=== PATIENT | male | born 1945 | race Hispanic/Latino ===

== ENCOUNTER 2019-02-01 16:59 | Inpatient (IN) | payer MEDICARE, OTHER ==
[~2019-02-01] VITALS: Ht 185.4 cm; Wt 105.2 kg
[~2019-02-01 16:59] MED LIST: AMLODIPINE BESYL5 MG PO; ASPIR 8181 MG PO; BENAZEPRIL HCL10 MG PO; CRESTOR10 MG PO; FISH OIL 1,2001 EACH PO; HYDROCHLOROTHIA25 MG PO; LEVOTHYROXINE100 MCG PO
--- OUTSIDE RECORDS SUMMARY | 2019-02-01 17:02 | XMS REPORT | Continuity of Care Document ---
Author Author [facility] Interface Address Unknown Phone Unavailable Problems Problem Status Onset Date Classification Date Reported Comments Source SHORTNESS OF BREATH Active 06/11/2016 [facility] SEPSIS SECONDARY TO RIGHT SIDED PNEUMONI Active 06/11/2016 [facility] Hyperlipidemia Active Problem 07/02/2016 [facility] Hypertension Active Problem 07/02/2016 [facility] Hyperthyroidism Active Problem 07/02/2016 [facility] Sepsis Active Diagnosis 07/10/2016 [id number] Empyema of lung Active Problem 07/10/2016 [id number] Sepsis due to Hemophilus influenzae Active Problem 07/10/2016 [id number] PNA Active Problem 07/10/2016 [id number] SEPSIS, UNSPECIFIED ORGANISM Active [facility] PNEUMONIA, UNSPECIFIED ORGANISM Active [facility] PLEURAL EFFUSION IN OTHER CONDITIONS CLA Active [facility] XRAY Active [facility] PYOTHORAX WITHOUT FISTULA Active [facility] Medications Medication Details Route Status Patient Instructions Ordering Provider Order Date Source amLODIPine 5 mg oral tablet 5 mg=1 tab, PO, Daily, # 30 tab, 0 Refill(s) Active 06/18/2016 [facility] Levofloxacin 750 MG Oral Tablet [Levaquin] 750 mg=1 tab, PO, Q24H, X 10 day, # 10 tab, 0 Refill(s) Active 06/18/2016 [facility] acetaminophen-hydrocodone 325 mg-10 mg oral tablet 1 tab, Route: PO, Drug Form: TAB, Dosing Weight 104.818, kg, Q6H, PRN Pain Score 6-10, Start date: 06/17/16 13:08:00 CDT, Duration: 30 day, Stop date: 07/17/16 13:07:00 CDTNotes: Do not exceed 4gm/day of acetaminophen. (Same as: [place] 325/10) No Longer Active 2016 [facility] Norvasc 5 mg, 1 tab, Route: PO, Drug form: TAB, Daily, Dosing Weight 104.818, kg, Priority: STAT, Start date: 06/16/16 21:15:00 CDT, Duration: 30 day, Stop date: 07/16/16 9:00:00 CDTNotes: (Same as: Norvasc) No Longer Active 2016 [facility] Ceftriaxone 1 gm, Route: IV, [id number], Dosing Weight 104.818, kg, Start date: 06/16/16 9:00:00 CDT, Duration: 30 day, Stop date: 07/15/16 21:00:00 CDTNotes: (Same As: Rocephin). Use with 100 mL NS and infuse over 30 min MEDICATION WASTE Product Size: 1000 mg Product Wasted: ___ mg No Longer Active 06/16/2016 [facility] Dulcolax Laxative 5 mg, 1 tab, Route: PO, Drug form: ECTAB, Daily, Dosing Weight 104.818, kg, Start date: 06/15/16 9:00:00 CDT, Duration: 30 day, Stop date: 07/14/16 9:00:00 CDTNotes: (Same As: Dulcolax, Correctol) (Do Not Crush) "Do Not Crush" No Longer Active 06/15/2016 [facility] Docusate Sodium 100 MG Oral Capsule [Colace] 100 mg, 1 cap, Route: PO, Drug form: CAP, BID, Dosing Weight 104.818, kg, Start date: 06/15/16 9:00:00 CDT, Duration: 30 day, Stop date: 07/14/16 17:00:00 CDTNotes: (Same as: Colace) (Do Not Crush) No Longer Active 06/15/2016 [facility] acetaminophen-hydrocodone 325 mg-10 mg oral tablet 1 tab, Route: PO, Drug Form: TAB, Dosing Weight 104.818, kg, Q6Hnow, Start date: 06/15/16 1:00:00 CDT, Duration: 30 day, Stop date: 07/14/16 19:00:00 CDTNotes: Do not exceed 4gm/day of acetaminophen. (Same as: [place] 325/10) No Longer Active 06/15/2016 [facility] Morphine 30 mg, 30 mL, Route: IV, Initial Loading Dose: 2 mg, CHILD AND FAMILY THERAPIST Dose: 1 mg, CHILD AND FAMILY THERAPIST Lockout: 10 minutes, Continuous Basal Rate: 0 mg, 4 Hour Limit (In MG): 30, Drug Form: INJ, Continuous, Start date: 06/15/16 0:30:00 CDT, Duration: 30 day, Stop date: 07/15/16 0...Notes: Dose: Delay: Basal rate: 4hr limit: (Same as:Stevan-Boom) Inactive 06/15/2016 [facility] Naloxone 0.04 mg, 0.04 mL, Route: IVP, Drug form: INJ, Q2MIN, Dosing Weight 104.818, kg, PRN Narcotic Reversal, Start date: 06/15/16 0:14:00 CDT, Duration: 30 day, Stop date: 07/15/16 0:13:00 CDTNotes: (Same as: Narcan) MEDICATION WASTE Product Size: 2 mg Product Wasted: ___ mg No Longer Active 06/15/2016 [facility] Acetaminophen 325 MG / Hydrocodone Bitartrate 10 MG Oral Tablet 1 tab, Route: PO, Drug Form: TAB, Dosing Weight 104.818, kg, Q6Hnow, Start date: 06/15/16 0:06:00 CDT, Stop date: 07/15/16 0:00:00 CDTNotes: Do not exceed 4gm/day of acetaminophen. (Same as: [place] 325/10) Inactive 06/15/2016 [facility] Docusate Sodium 100 MG Oral Capsule 100 mg, 1 cap, Route: PO, Drug form: CAP, BID, Dosing Weight 104.818, kg, Start date: 06/14/16 17:00:00 CDT, Duration: 30 day, Stop date: 07/14/16 9:00:00 CDTNotes: (Same as: Colace) (Do Not Crush) Inactive 06/14/2016 [facility] Rocephin 2 gm, Route: IVPB, [id number], Dosing Weight 104.818, kg, Start date: 06/14/16 13:00:00 CDT, Duration: 30 day, Stop date: 07/13/16 13:00:00 CDTNotes: (Same As: Rocephin). Use with 100 mL NS and infuse over 30 min MEDICATION WASTE Product Size: 2000 mg Product Wasted: ___ mg No Longer Active 06/14/2016 [facility] Acetaminophen 325 MG / Hydrocodone Bitartrate 10 MG Oral Tablet 1 tab, Route: PO, Drug Form: TAB, Dosing Weight 104.818, kg, Q6H, Start date: 06/14/16 12:00:00 CDT, Duration: 30 day, Stop date: 07/14/16 6:00:00 CDTNotes: Do not exceed 4gm/day of acetaminophen. (Same as: [place] 325/10) Inactive 06/14/2016 [facility] Morphine 30 mg, 30 mL, Route: IV, Initial Loading Dose: 2 mg, CHILD AND FAMILY THERAPIST Dose: 1 mg, CHILD AND FAMILY THERAPIST Lockout: 10 minutes, Continuous Basal Rate: 0 mg, 4 Hour Limit (In MG): 30, Drug Form: INJ, Continuous, Start date: 06/14/16 10: 30:00 CDT, Duration: 30 day, Stop date: 07/14/16...Notes: Dose: Delay: Basal rate: 4hr limit: (Same as:Stevan-Boom) Inactive 06/14/2016 [facility] Naloxone 0.04 mg, 0.1 mL, Route: IVP, Drug form: INJ, Q2MIN, Dosing Weight 104.818, kg, PRN Narcotic Reversal, Start date: 06/14/16 10:10:00 CDT, Duration: 30 day, Stop date: 07/14/16 10:09:00 CDTNotes: Same as Narcan Inactive 06/14/2016 [facility] Morphine 2 mg, 1 mL, Route: IVP, Drug form: INJ, Q3H, Dosing Weight 104.818, kg, PRN Pain Score 6-10, Start date: 06/14/16 10:10:00 CDT, Duration: 30 day, Stop date: 07/14/16 10:09:00 CDTNotes: (Same as:MORPhine Sulfate) Inactive 06/14/2016 [facility] Ondansetron 4 mg, 2 mL, Route: IVP, Drug form: INJ, Q6H, Dosing Weight 104.818, kg, PRN Nausea & Vomiting, Start date: 06/14/16 10:10:00 CDT, Duration: 30 day, Stop date: 07/14/16 10:09:00 CDTNotes: (Same as: Zofran) MEDICATION WASTE Product Size: 4 mg Product Wasted: ___ mg Inactive 06/14/2016 [facility] Dulcolax Laxative 5 mg, 1 tab, Route: PO, Drug form: ECTAB, Q24H, Dosing Weight 104.818, kg, PRN Constipation, Start date: 06/14/16 10:10:00 CDT, Duration: 30 day, Stop date: 07/14/16 10:09:00 CDTNotes: (Same As: Dulcolax, Correctol) (Do Not Crush) "Do Not Crush" Inactive 06/14/2016 [facility] phenylephrine (ANES) Route: IV, Drug form: INJ, ONCE, Stop date: 06/14/16 10:08:00 CDT Inactive 06/14/2016 [facility] ondansetron (ANES) Route: IV, Drug form: INJ, ONCE, Stop date: 06/14/16 10:06:00 CDT Inactive 06/14/2016 [facility] ePHEDrine (ANES) Route: IV, Drug form: INJ, ONCE, Stop date: 06/14/16 10:00:00 CDT Inactive 06/14/2016 [facility] hydromorphone (ANES) Route: IV, Drug form: INJ, ONCE, Stop date: 06/14/16 9:45:00 CDT Inactive 06/14/2016 [facility] dexamethasone (ANES) Route: IV, Drug form: INJ, ONCE, Stop date: 06/14/16 9:29:00 CDT Inactive 06/14/2016 [facility] cefTRIAXone (ANES) Route: IV, Drug form: INJ, ONCE, Stop date: 06/14/16 9:29:00 CDT Inactive 06/14/2016 [facility] fentaNYL (ANES) Route: IV, Drug form: INJ, ONCE, Stop date: 06/14/16 9:17:00 CDT Inactive 06/14/2016 [facility] midazolam (ANES) Route: IV, Drug form: SOLN, ONCE, Stop date: 06/14/16 9:17:00 CDT Inactive 06/14/2016 [facility] propofol (ANES) Route: IV, Drug form: INJ, ONCE, Stop date: 06/14/16 9:17:00 CDT Inactive 06/14/2016 [facility] lidocaine (ANES) Route: IV, Drug form: INJ, ONCE, Stop date: 06/14/16 9:17:00 CDT Inactive 06/14/2016 [facility] rocuronium (ANES) Route: IV, Drug form: INJ, ONCE, Stop date: 06/14/16 9:17:00 CDT Inactive 06/14/2016 [facility] LR 1000 mL INJ (ANES) Route: IV, Total Volume: 1,000, Start date: 06/14/16 8:59:00 CDT, Stop date: 06/14/16 9:59:00 CDT Inactive 06/14/2016 [facility] Please do not give Vanco prior to trough is collected Please do not give Vanco prior to trough is collected, Reminder, Drug form: MISC, Route: MISC, ONCE, 06/14/16 0:00:00 CDT, Stop date: 06/14/16 0:00:00 CDT Inactive 06/14/2016 [facility] heparin 5,000 unit, 1 mL, Route: SUB-Q, Drug form: INJ, Q12H, Dosing Weight 104.818, kg, Start date: 06/13/16 21:00:00 CDT, Duration: 30 day, Stop date: 07/13/16 9:00:00 CDTNotes: porcine heparin No Longer Active 06/14/2016 [facility] cefepime 1 gm, Route: IVPB, [id number], Dosing Weight 104.818, kg, (CrCl >/=50 ml/min), Priority: NOW, Start date: 06/13/16 18:31:00 CDT, Duration: 30 day, Stop date: 07/13/16 10:31:00 CDTNotes: (Same As: Maxipime) MEDICATION WASTE Product Size: 1000 mg Product Wasted: ___ mg No Longer Active 06/13/2016 [facility] Prinivil 40 mg, 2 tab, Route: PO, Drug form: TAB, Daily, Start date: 06/13/16 9:00:00 CDT, Duration: 30 day, Stop date: 07/12/16 9:00:00 CDTNotes: (Same as: Prinivil, Zestril) No Longer Active 06/13/2016 [facility] benazepril 40 mg, Route: PO, Daily, Dosing Weight 104.818, kg, Start date: 06/13/16 9:00:00 CDT, Duration: 30 day, Stop date: 07/12/16 9:00:00 CDT No Longer Active 06/13/2016 [facility] Thyroxine 75 microgram, 1 tab, Route: PO, Drug form: TAB, Daily, Dosing Weight 104.818, kg, Start date: 06/13/16 6:30:00 CDT, Duration: 30 day, Stop date: 07/12/16 6:30:00 CDTNotes: Take 1 hour before or 2 hours after meal; Enteral feeds may interefere with the absorption of this medication. (Same as:Synthroid, Levothroid) No Longer Active 06/13/2016 [facility] Vancomycin 1,000 mg, Route: IVPB, [id number], Dosing Weight 104.818, kg, Start date: 06/12/16 13:00:00 CDT, Duration: 30 day, Stop date: 07/12/16 1:00:00 CDTNotes: TIME CRITICAL MEDICATION (Same As: Vancocin) Infusi on rate 2001 mg: infuse over 2.5 hours MEDICATION WASTE Product Size: 1000 mg Product Wasted: ___ mg No Longer Active 06/12/2016 [facility] Albuterol 0.83 MG/ML Inhalant Solution 2.49 mg, 3 mL, Route: NEB, Drug form: SOLN, PRN, Dosing Weight 104.818, kg, PRN Respiratory Protocol, Start date: 06/12/16 10:48:00 CDT, Duration: 30 day, Stop date: 07/12/16 10:47:00 CDTNotes: SEE RT DOCUMENTATION (Same as: Proventil) No Longer Active 06/12/2016 [facility] Rocephin 1 gm, Route: IVPB, [id number], Dosing Weight 104.545, kg, Priority: Routine, Start date: 06/12/16 0:00:00 CDT, Duration: 30 day, Stop date: 07/11/16 0:00:00 CDTNotes: (Same As: Rocephin). Use with 100 mL NS and infuse over 30 min MEDICATION WASTE Product Size: 1000 mg Product Wasted: ___ mg No Longer Active 06/12/2016 [facility] Activase Route: INTRAPLEURAL, ONCE, Dosing Weight 104.818, kg, 10m mg in 50 ml sterile saline, Start date: 06/11/16 14:33:00 CDT, Stop date: 06/11/16 14:33:00 CDT Inactive 06/11/2016 [facility] lidocaine 2% injectable solution 10 mL, Route: IV, Drug Form: SOLN, Dosing Weight 104.818, kg, ONCE, STAT, Start date: 06/11/16 11:38:00 CDT, Stop date: 06/11/16 11:38:00 CDTNotes: Preservative free. (Same as: Xylocaine-MPF) Inactive 06/11/2016 [facility] lidocaine 2% injectable solution 0.1 gm, 5 mL, Route: IV, Dosing Weight 104.818, kg, ONCE, Start date: 06/11/16 11:36:00 CDT, Stop date: 06/11/16 11:36:00 CDT Inactive 06/11/2016 [facility] nitroglycerin 0.4 mg sublingual tablet 0.4 mg, 1 tab, Route: SL, Drug form: TAB, Q5Min, PRN Chest Pain, Start date: 06/11/16 11:22:00 CDT, Duration: 30 day, Stop date: 07/11/16 11:21:00 CDTNotes: (Same as:Nitroquick, Nitrostat) "Do Not Crush" Sublingual tablet No Longer Active 06/11/2016 [facility] atropine 0.5 mg, 5 mL, Route: IVP, Drug form: INJ, PRN, PRN Bradycardia, Start date: 06/11/16 11:22:00 CDT, Duration: 30 day, Stop date: 07/11/16 11:21:00 CDT No Longer Active 06/11/2016 [facility] Thyroxine 75 microgram, PO, Daily, 0 Refill(s) Active 06/11/2016 [facility] Simvastatin 40 mg, PO, Bedtime, 0 Refill(s) Active 06/11/2016 [facility] benazepril 40 mg, PO, Daily, 0 Refill(s) Active 06/11/2016 [facility] Streptococcus pneumoniae serotype 1 capsular antigen diphtheria [id number] protein conjugate vaccine / Streptococcus pneumoniae serotype 14 capsular antigen diphtheria [id number] protein conjugate vaccine / Streptococcus pneumoniae serotype 18C capsular antigen d 0.5 mL, Route: IM, Drug Form: INJ, Daily, Start date: 06/11/16 9:00:00 CDT, Duration: 1 doses or times, Stop date: 06/11/16 9:00:00 CDTNotes: Lightly roll vial (DO NOT SHAKE) before administration. (Same as: Prevadarsh 13) Inactive 06/11/2016 [facility] Zithromax 500 mg, 2 tab, Route: PO, Drug form: TAB, [id number], Dosing Weight 104, kg, Start date: 06/11/16 6:00:00 CDT, Duration: 30 day, Stop date: 07/10/16 6:00:00 CDTNotes: Take 1 hour before or 2 hours after meals. (Same As: Zithromax) No Longer Active 06/11/2016 [facility] sodium chloride 0.9% 1000 ml INJ 1,000 mL 1,000 mL, Rate: 60 ml/hr, Infuse over: 16.7 hr, Route: IV, Dosing Weight 104 kg, Total Volume: 1,000, Start date: 06/11/16 5:54:00 CDT, Stop date: 07/11/16 5:53:00 CDT No Longer Active 06/11/2016 [facility] Ondansetron 4 mg, 2 mL, Route: IVP, Drug form: INJ, Q6H, Dosing Weight 104.545, kg, PRN Nausea & Vomiting, Start date: 06/11/16 4:37:00 CDT, Duration: 30 day, Stop date: 07/11/16 4:36:00 CDTNotes: (Same as: Inge) MEDICATION WASTE Product Size: 4 mg Product Wasted: ___ mg No Longer Active 06/11/2016 [facility] Morphine 2 mg, 1 mL, Route: IVP, Drug form: INJ, Q4H, Dosing Weight 104.545, kg, PRN Pain Score 7-10, Start date: 06/11/16 4:37:00 CDT, Duration: 30 day, Stop date: 07/11/16 4:36:00 CDTNotes: (Same as:MORPhine Sulfate) No Longer Active 06/11/2016 [facility] Acetaminophen 650 mg, 2 tab, Route: PO, Drug form: TAB, Q4H, Dosing Weight 104.545, kg, PRN Pain 1-3/Temp > 100.4 F, Start date: 06/11/16 4:37:00 CDT, Duration: 30 day, Stop date: 07/11/16 4:36:00 CDTNotes: Do not exceed 4 gm/day. (Same as: Tylenol) No Longer Active 06/11/2016 [facility] Sodium Chloride 0.154 MEQ/ML Injectable Solution 3,136.35 mL, 500 ml/hr, Infuse Over: 1 Hour, Route: IV, ONCE, Priority: STAT, Dosing Weight 104.545 kg, Start date: 06/11/16 0:36:00 CDT, Duration: 1 doses or times, Stop date: 06/11/16 0:36:00 CDT Inactive 06/11/2016 [facility] Rocephin 1 gm, Route: IVPB, Drug form: PDR/INJ, ONCE, Dosing Weight 104.545, kg, Priority: STAT, Start date: 06/11/16 0:33:00 CDT, Stop date: 06/11/16 0:33:00 CDT Inactive 06/11/2016 [facility] Calcium Chloride 0.0014 MEQ/ML / Potassium Chloride 0.004 MEQ/ML / Sodium Chloride 0.103 MEQ/ML / Sodium Lactate 0.028 MEQ/ML Injectable Solution 3,200 mL, 2000 ml/hr, Infuse Over: 1.6 hr, Route: IV, 3,200, Drug form: INJ, ONCE, Priority: STAT, Dosing Weight 104.545 kg, Start date: 06/11/16 0:26:00 CDT, Duration: 1 doses or times, Stop date: 06/11/16 0:26:00 CDT, Sepsis Dose; round UP Only Inactive 06/11/2016 [facility] Acetaminophen 650 mg, 2 tab, Route: PO, Drug form: TAB, ONCE, Dosing Weight 104.545, kg, Priority: STAT, Start date: 06/11/16 0:26:00 CDT, Stop date: 06/11/16 0:26:00 CDTNotes: Do not exceed 4 gm/day. (Same as: T ylenol) Inactive 06/11/2016 [facility] Ibuprofen 600 mg, 1.5 tab, Route: PO, Drug form: TAB, ONCE, Dosing Weight 104.545, kg, Priority: STAT, Start date: 06/11/16 0:26:00 CDT, Stop date: 06/11/16 0:26:00 CDTNotes: (Same as: Motrin) "Do Not Crush" Give with food. Inactive 06/11/2016 [facility] Allergies, Adverse Reactions, Alerts Substance Category Reaction Severity Reaction type Status Date Reported Comments Source N.K.D.A. Adverse Reaction Info Not Available Adverse Reaction Active 07/09/2016 [id number] Immunizations Immunization Date Given Site Status Last Updated Comments Source pneumococcal 13-valent vaccine 06/12/2016 Left deltoid completed [facility] Results Order Name Results Value Reference Range Date Interpretation Comments Source Chest 2 views DX Chest 2 views DX Patient Name: MAX MOELLER : 1945; Age: 71 years y/o Male MR: [id number] Study: Chest 2 views DX 06/29/2016 11:07 AM CDT Ordering Physician: Clinical Indication: J86.9 Pyothorax without fistula; Comparison: 2016 Chest 2 view Low lung volumes, with bibasilar atelectasis similar to previous. Pleural thickening or minimal pleural fluid blunts left costophrenic angle, unchanged. No significant pleural effusion is otherwise demonstrated. Heart size stable. No evidence for congestive heart failure. Retrocardiac density consistent with hiatal hernia. IMPRESSION: Mild bibasilar atelectasis similar to previous recent studies. No new infiltrate or pleural effusion. SL: [id number] 06/29/2016 - - Read by: Branden Guy MD Dictated Date/time: 06/29/16 18:11 Electronically Signed by: Branden Guy MD 06/29/16 18:15 FINAL REPORT [facility] Chest 1view DX Chest 1view DX Chest 1view DX CLINICAL HISTORY:PICC Line Placement COMPARISON: 2016 FINDINGS/IMPRESSION: Limited AP portable study. Support Lines/Devices: Right upper extremity PICC line terminates near SVC right atrial junction. Lungs: Pulmonary underinflation. There is scarring and atelectasis in the mid to lower lung zones, unchanged from previous study. Question small left basilar effusion. Cardiomediastinum: Cardiomediastinal silhouette is stable. Bone and Soft Tissues: No significant bony abnormality is evident. Multiple EKG leads and other wires project over the patient's chest. SL: [id number] 2016 - - Read by: Dudley Treviño MD Dictated Date/time: 06/17/16 15:53 Electronically Signed by: Dudley Treviño MD 06/17/16 15:54 FINAL REPORT [facility] 1view DX Chest 1view DX Study: Chest 1view DX Clinical Indication: Abnormal chest sounds Comparison: Chest x-ray from 06/16/2016 FINDINGS: Cardiac silhouette is normal in size. Lung volumes are diminished and mild bibasilar atelectasis is seen. Trace left pleural effusion is noted. No pneumothorax is seen. Previously noted left upper chest tube has been removed. Additional chest tube along the left lung base is stable. The osseous structures are unremarkable. IMPRESSION: Interval removal of a left-sided chest tube. No pneumothorax is seen. SL: [id number] 2016 - - Read by: Ilir Lyman MD Dictated Date/time: 06/17/16 08:31 Electronically Signed by: Ilir Lyman MD 06/17/16 08:32 FINAL REPORT [facility] CHEM PANEL A/G Ratio 0.4 0.7 - 1.6 06/16/2016 [facility] CHEM PANEL Globulin 4.2 g/dL 2.7 - 4.2 06/16/2016 [facility] CHEM PANEL B/C Ratio 14 6 - 25 06/16/2016 [facility] CHEM PANEL AGAP 11.3 meq/L 10.0 - 20.0 06/16/2016 [facility] CHEM PANEL eGFR 87 mL/min/1.73m2 06/16/2016 Result Comment: The eGFR is calculated using the CKD-EPI formula. In most young, healthy individuals the eGFR will be >90 mL/min/1.73m2. The eGFR declines with age. An eGFR of 60-89 may be normal in some populations, particularly the elderly, for whom the CKD-EPI formula has not been extensively validated. Use of the eGFR is not recommended in the following populations: Individuals with unstable creatinine concentrations, including patients and those with serious co-morbid conditions. Patients with extremes in muscle mass or diet. The data above are obtained from the National Kidney Disease Education Program (NKDEP) which additionally recommends that when the eGFR is used in patients with extremes of body mass index for purposes of drug dosing, the eGFR should be multiplied by the estimated BMI. [facility] CHEM PANEL Total Protein 6.0 g/dL 6.4 - 8.4 06/16/2016 [facility] CHEM PANEL Calcium Lvl 7.5 mg/dL 8.5 - 10.5 06/16/2016 [facility] CHEM PANEL CO2 27 meq/L 24 - 32 06/16/2016 [facility] CHEM PANEL Bili Total 0.5 mg/dL 0.2 - 1.3 06/16/2016 [facility] CHEM PANEL Alk Phos 327 unit/L 39 - 136 06/16/2016 [facility] CHEM PANEL AST 74 unit/L 0 - 37 06/16/2016 [facility] CHEM PANEL ALT 118 unit/L 0 - 65 06/16/2016 [facility] CHEM PANEL Albumin Lvl 1.8 g/dL 3.5 - 5.0 06/16/2016 [facility] CHEM PANEL Sodium Lvl 140 meq/L 135 - 145 06/16/2016 [facility] CHEM PANEL Glucose Lvl 89 mg/dL 70 - 99 06/16/2016 [facility] CHEM PANEL Creatinine Lvl 0.90 mg/dL 0.50 - 1.40 06/16/2016 [facility] CHEM PANEL BUN 13 mg/dL 7 - 22 06/16/2016 [facility] CHEM PANEL Chloride Lvl 106 meq/L 95 - 109 06/16/2016 [facility] CHEM PANEL Potassium Lvl 4.3 meq/L 3.5 - 5.1 06/16/2016 [facility] HEMATOLOGY RBC 3.52 M/CMM 4.70 - 6.10 06/16/2016 [facility] HEMATOLOGY Hgb 10.7 g/dL 14.0 - 18.0 06/16/2016 [facility] HEMATOLOGY Hct 31.2 % 42.0 - 54.0 06/16/2016 [facility] HEMATOLOGY WBC 8.5 K/CMM 3.7 - 10.4 06/16/2016 [facility] HEMATOLOGY MCV 88.6 fL 80.0 - 94.0 06/16/2016 [facility] MCHC 34.1 g/dL 32.0 - 36.0 06/16/2016 [facility] HEMATOLOGY RDW 14.7 % 11.5 - 14.5 06/16/2016 [facility] HEMATOLOGY Platelet 307 K/CMM 133 - 450 06/16/2016 [facility] HEMATOLOGY MPV 7.9 fL 7.4 - 10.4 06/16/2016 [facility] MCH 30.3 pg 27.0 - 31.0 06/16/2016 [facility] HEMATOLOGY Eosinophils # 0.5 K/CMM 0.0 - 0.5 06/16/2016 [facility] HEMATOLOGY Lymphocytes # 1.6 K/CMM 1.0 - 5.5 06/16/2016 [facility] HEMATOLOGY Monocytes # 0.4 K/CMM 0.0 - 0.8 06/16/2016 [facility] HEMATOLOGY Basophils # 0.1 K/CMM 0.0 - 0.2 06/16/2016 [facility] Monocytes 4.4 % 2.0 - 12.0 06/16/2016 [facility] HEMATOLOGY Eosinophils 5.8 % 0.0 - 4.0 06/16/2016 [facility] Basophils 1.0 % 0.0 - 1.0 06/16/2016 [facility] Segs-Bands # 6.0 K/CMM 1.5 - 8.1 06/16/2016 [facility] RBC Morph Normal (06/16/16 4:12 AM) 06/16/2016 [facility] Lymphocytes 18.3 % 20.0 - 40.0 06/16/2016 [facility] Plt Morph Normal (06/16/16 4:12 AM) 06/16/2016 [facility] Segs 70.5 % 45.0 - 75.0 06/16/2016 [facility] Hep Bs Ag Negative *NA* (06/16/16 4:12 AM) Negative 06/16/2016 [facility] Hep B Core IgM Negative *NA* (06/16/16 4:12 AM) Negative 06/16/2016 [facility] Hep A IgM Negative *NA* (06/16/16 4:12 AM) Negative 06/16/2016 [facility] IMMUNOLOGY Hep C Ab Negative *NA* (06/16/16 4:12 AM) 06/16/2016 [facility] Chest 1view DX Chest 1view DX Patient Name: MAX MOELLER : 1945; Age: 70 years y/o Male MR: [id number] Study: Chest 1view DX 06/16/2016 3:00 AM CDT Ordering Physician: Clinical Indication: Abnormal chest sounds; Comparison: 06/14/2016 1 view chest Left chest tubes again present, unchanged. No pneumothorax is seen. Small subcutaneous emphysema in the lateral chest wall. Trace pleural fluid blunts left costophrenic angle. No enlarging pleural effusion. Persistent bibasilar atelectasis. Improving right perihilar atelectasis, however since previous study. IMPRESSION: Left chest tubes remain. No pneumothorax or significant pleural effusion is currently demonstrated. Generalized hypoventilation with persistent bilateral pulmonary atelectasis. SL: [id number] 06/16/2016 - - Read by: Branden Guy MD Dictated Date/time: 06/16/16 07:50 Electronically Signed by: Branden Guy MD 06/16/16 07:54 FINAL REPORT [facility] Eosinophils # 0.1 K/CMM 0.0 - 0.5 06/15/2016 [facility] Lymphocytes # 1.3 K/CMM 1.0 - 5.5 06/15/2016 [facility] Monocytes # 0.6 K/CMM 0.0 - 0.8 06/15/2016 [facility] Segs-Bands # 11.1 K/CMM 1.5 - 8.1 06/15/2016 [facility] Basophils 0.2 % 0.0 - 1.0 06/15/2016 [facility] Eosinophils 0.6 % 0.0 - 4.0 06/15/2016 [facility] Monocytes 4.5 % 2.0 - 12.0 06/15/2016 [facility] Lymphocytes 10.3 % 20.0 - 40.0 06/15/2016 [facility] Segs 84.4 % 45.0 - 75.0 06/15/2016 [facility] MPV 8.0 fL 7.4 - 10.4 06/15/2016 [facility] WBC 13.1 K/CMM 3.7 - 10.4 06/15/2016 [facility] Platelet 301 K/CMM 133 - 450 06/15/2016 [facility] RDW 14.6 % 11.5 - 14.5 06/15/2016 [facility] Hct 31.7 % 42.0 - 54.0 06/15/2016 [facility] RBC 3.55 M/CMM 4.70 - 6.10 06/15/2016 [facility] Hgb 10.5 g/dL 14.0 - 18.0 06/15/2016 [facility] MCHC 33.1 g/dL 32.0 - 36.0 06/15/2016 [facility] MCH 29.6 pg 27.0 - 31.0 06/15/2016 [facility] MCV 89.4 fL 80.0 - 94.0 06/15/2016 [facility] CHEM PANEL eGFR 76 mL/min/1.73m2 06/14/2016 Result Comment: The eGFR is calculated using the CKD-EPI formula. In most young, healthy individuals the eGFR will be >90 mL/min/1.73m2. The eGFR declines with age. An eGFR of 60-89 may be normal in some populations, particularly the elderly, for whom the CKD-EPI formula has not been extensively validated. Use of the eGFR is not recommended in the following populations: Individuals with unstable creatinine concentrations, including patients and those with serious co-morbid conditions. Patients with extremes in muscle mass or diet. The data above are obtained from the National Kidney Disease Education Program (NKDEP) which additionally recommends that when the eGFR is used in patients with extremes of body mass index for purposes of drug dosing, the eGFR should be multiplied by the estimated BMI. [facility] CHEM PANEL Creatinine Lvl 1.00 mg/dL 0.50 - 1.40 06/14/2016 [facility] Platelet 314 K/CMM 133 - 450 06/14/2016 [facility] Chest 1view DX Chest 1view DX Chest 1view DX 70 years old Male Clinical Indication: Abnormal chest sounds; L VATS decortication Comparison: 06/14/2016 at 07:34 FINDINGS: Tubes and lines: A right-sided intercostal tube has been placed with removal of the small caliber pigtail catheter on the left. LUNGS: The volume of the lungs is diminished. The patient is taking a slightly deeper inspiration than on the previous exam. There is some platelike atelectasis in the region of the minor fissure on the right which has developed since the previous exam. The patient is taking a shallow inspiration. No pleural effusion is noted. The pulmonary vasculature is within normal limits. MEDIASTINUM: Cardiac silhouette is within normal limits of size. CHEST WALL: Unremarkable. SKELETON: The visualized osseous structures are unremarkable. IMPRESSION: 1. Replacement small caliber intercostal tube on the left with larger chest tube with tip directed to the apex. 2. Development of some platelike atelectasis in the right mid lung since previous exam. 3. Slightly more shallow inspiration than on the previous exam. SL: [id number] 06/14/2016 - - Read by: Luciano Otero MD Dictated Date/time: 06/14/16 11:04 Electronically Signed by: Luciano Otero MD 06/14/16 11:07 FINAL REPORT [facility] Chest 1view DX Chest 1view DX Chest 1view DX 70 years old Male Clinical Indication: Tube placement/removal/reposition; followup left pleural drainage Comparison: 06/13/2016 at 07:31 FINDINGS: Tubes and lines:There is a small caliber pleural tube in position in the lateral aspect of the left lung base. Findings unchanged from previous exam. LUNGS: The volume of the lungs is diminished by shallow inspiration. Minor atelectasis present in the left lower lung and left perihilar lung. Right lung clear. No pleural effusion is noted. The pulmonary vasculature is within normal limits. MEDIASTINUM: Cardiac silhouette is within normal limits of size. CHEST WALL: Unremarkable. SKELETON: The visualized osseous structures are unremarkable. IMPRESSION: 1. Shallow inspiration. 2. Left-sided pleural catheter unchanged. 3. Minor atelectasis in the left lower lung. SL: [id number] 06/14/2016 - - Read by: Luciano Otero MD Dictated Date/time: 06/14/16 10:38 Electronically Signed by: Luciano Otero MD 06/14/16 10:40 FINAL REPORT [facility] TOXICOLOGY Vanco Tr 8.6 ug/ml 06/14/2016 [facility] TOXICOLOGY Vanco Tr TND 0100 06/14/2016 [facility] BLOOD BANK RESULTS ABO/Rh O POS 06/13/2016 [facility] BLOOD BANK RESULTS Antibody Scrn Negative (06/13/16 10:40 AM) 06/13/2016 [facility] CHEM PANEL Bili Indirect 0.3 mg/dL 0.0 - 1.0 06/13/2016 [facility] CHEM PANEL Bili Total 0.4 mg/dL 0.2 - 1.3 06/13/2016 [facility] CHEM PANEL Bili Direct 0.1 mg/dL 0.0 - 0.3 06/13/2016 [facility] CHEM PANEL Globulin 5.0 g/dL 2.7 - 4.2 06/13/2016 [facility] CHEM PANEL Albumin Lvl 1.8 g/dL 3.5 - 5.0 06/13/2016 [facility] CHEM PANEL A/G Ratio 0.4 0.7 - 1.6 06/13/2016 [facility] CHEM PANEL Total Protein 6.8 g/dL 6.4 - 8.4 06/13/2016 [facility] CHEM PANEL ALT 106 unit/L 0 - 65 06/13/2016 [facility] CHEM PANEL AST 132 unit/L 0 - 37 06/13/2016 [facility] CHEM PANEL Alk Phos 299 unit/L 39 - 136 06/13/2016 [facility] ELECTROLYTES AGAP 10.1 meq/L 10.0 - 20.0 06/13/2016 [facility] ELECTROLYTES Creatinine Lvl 0.99 mg/dL 0.50 - 1.40 06/13/2016 [facility] ELECTROLYTES BUN 15 mg/dL 7 - 22 06/13/2016 [facility] ELECTROLYTES Sodium Lvl 139 meq/L 135 - 145 06/13/2016 [facility] ELECTROLYTES Glucose Lvl 95 mg/dL 70 - 99 06/13/2016 [facility] ELECTROLYTES Calcium Lvl 8.2 mg/dL 8.5 - 10.5 06/13/2016 [facility] ELECTROLYTES Potassium Lvl 4.1 meq/L 3.5 - 5.1 06/13/2016 [facility] ELECTROLYTES CO2 25 meq/L 24 - 32 06/13/2016 [facility] ELECTROLYTES Chloride Lvl 108 meq/L 95 - 109 06/13/2016 [facility] ELECTROLYTES eGFR 77 mL/min/1.73m2 06/13/2016 Result Comment: The eGFR is calculated using the CKD-EPI formula. In most young, healthy individuals the eGFR will be >90 mL/min/1.73m2. The eGFR declines with age. An eGFR of 60-89 may be normal in some populations, particularly the elderly, for whom the CKD-EPI formula has not been extensively validated. Use of the eGFR is not recommended in the following populations: Individuals with unstable creatinine concentrations, including patients and those with serious co-morbid conditions. Patients with extremes in muscle mass or diet. The data above are obtained from the National Kidney Disease Education Program (NKDEP) which additionally recommends that when the eGFR is used in patients with extremes of body mass index for purposes of drug dosing, the eGFR should be multiplied by the estimated BMI. [facility] MPV 8.2 fL 7.4 - 10.4 06/13/2016 [facility] RDW 14.6 % 11.5 - 14.5 06/13/2016 [facility] MCV 88.6 fL 80.0 - 94.0 06/13/2016 [facility] MCHC 33.3 g/dL 32.0 - 36.0 06/13/2016 [facility] MCH 29.5 pg 27.0 - 31.0 06/13/2016 [facility] Hct 33.8 % 42.0 - 54.0 06/13/2016 [facility] Hgb 11.2 g/dL 14.0 - 18.0 06/13/2016 [facility] RBC 3.81 M/CMM 4.70 - 6.10 06/13/2016 [facility] WBC 10.1 K/CMM 3.7 - 10.4 06/13/2016 [facility] Monocytes # 0.6 K/CMM 0.0 - 0.8 06/13/2016 [facility] Lymphocytes # 1.8 K/CMM 1.0 - 5.5 06/13/2016 [facility] Eosinophils # 0.4 K/CMM 0.0 - 0.5 06/13/2016 [facility] Segs-Bands # 7.2 K/CMM 1.5 - 8.1 06/13/2016 [facility] Basophils 0.7 % 0.0 - 1.0 06/13/2016 [facility] Eosinophils 3.7 % 0.0 - 4.0 06/13/2016 [facility] Segs 71.4 % 45.0 - 75.0 06/13/2016 [facility] Monocytes 5.9 % 2.0 - 12.0 06/13/2016 [facility] Lymphocytes 18.3 % 20.0 - 40.0 06/13/2016 [facility] Basophils # 0.1 K/CMM 0.0 - 0.2 06/13/2016 [facility] DX Chest 1view DX Patient Name: MAX MOELLER : 1945; Age: 70 years y/o Male MR: [id number] * CHEST, portable, 1 view HISTORY: Status post percutaneous drainage of left-sided empyema on 06/11/2016. A 14-[place] cope loop catheter was utilized. COMPARISON: 06/12/2016. IMPRESSION: 1. Minimal change in the appearance the chest from yesterday. 2. 14-[place] pigtail type chest tube is again noted in the left lower pleural space. There is moderate residual pleural and parenchymal disease which may represent atelectasis, infiltrate, and residual pleural effusion. At some point, a follow- up chest computed tomography scan (with contrast if possible) should be obtained to determine if there are any significant residual collections and to evaluate for residual disease. 3. The right lung is clear. There is no right pleural effusion. 4. Borderline cardiomegaly without overt failure. 5. The regional skeleton is unremarkable. : [id number] 06/13/2016 - - Read by: Arjun Kong MD Dictated Date/time: 06/13/16 11:57 Electronically Signed by: Arjun Kong MD 06/13/16 12:[address] DX Chest 1view DX Portable chest: The left pleural drainage catheter is in satisfactory position. Left basilar opacity consistent with atelectasis and/or residual effusion appears improved since the immediate postdrainage radiograph. There also appears to be improvement in the opacity over the upper lung related to the loculated interlobar effusion. There is no visible pneumothorax. The right lung and pleural space are clear. There is no other significant change. [id number] 06/12/2016 - - Read by: Max Smith MD Dictated Date/time: 06/12/16 07:09 Electronically Signed by: Max Smith MD 06/12/16 07:11 FINAL REPORT [facility] DX Chest 1view DX CHEST 1 VIEW: HISTORY: Shortness of Breath COMPARISON: 06/11/2016. IMPRESSION: Interval decrease in left pleural effusion. Left retrocardiac/basilar opacity which may represent any combination of layering pleural fluid, atelectasis, edema, or infection. Left chest tube unchanged in position. The cardiomediastinal silhouette, bones, and soft tissues have not significantly changed. SL: [id number] 06/12/2016 - - Read by: Jaylen King MD Dictated Date/time: 06/12/16 01:25 Electronically Signed by: Jaylen King MD 06/12/16 01:26 FINAL REPORT [facility] BODY FLUIDS Prot BF Type Pleural *NA* (06/11/16 2:45 PM) 06/11/2016 [facility] BODY FLUIDS Protein BF 5.3 g/dL 06/11/2016 [facility] BODY FLUIDS Albumin BF 2.0 g/dL 06/11/2016 [facility] BODY FLUIDS Alb BF Type Pleural *NA* (06/11/16 2:45 PM) 06/11/2016 [facility] BODY FLUIDS Supernat BF Yellow *ABN* (06/11/16 2:45 PM) Colorless 06/11/2016 [facility] [place] [address] /mm3 06/11/2016 [facility] [place] [address] /mm3 06/11/2016 [facility] BODY FLUIDS CellCnt BF Type Pleural (06/11/16 2:45 PM) 06/11/2016 [facility] BODY FLUIDS Clarity BF Slight Cloudy (06/11/16 2:45 PM) Clear 06/11/2016 [facility] BODY FLUIDS Color BF [place] *ABN* (06/11/16 2:45 PM) Colorless 06/11/2016 [facility] BODY FLUIDS Segs BF 96 % 06/11/2016 [facility] BODY FLUIDS Lymph BF 3 % 06/11/2016 [facility] BODY FLUIDS Macrophage BF 1 % 06/11/2016 [facility] BODY FLUIDS LDH BF Type Pleural (06/11/16 2:45 PM) 06/11/2016 [facility] BODY FLUIDS LDH BF 1516 unit/L 06/11/2016 [facility] BODY FLUIDS Gluc BF Type Pleural (06/11/16 2:45 PM) 06/11/2016 [facility] BODY FLUIDS Glucose BF null 06/11/2016 [facility] Chest 1view DX Chest 1view DX Patient Name: MAX MOELLER : 1945; Age: 70 years y/o Male MR: [id number] Study: Chest 1view DX dated 06/11/2016 at 1448 Clinical Indication: Tube placement/removal/reposition; post left chest tube placement Comparison: 06/11/2016 at 0031 There is now a left chest tube in place projecting over the left lung base. There is improved aeration to the left lung base and decreased left pleural effusion. Patchy consolidation persists in the left lung base. Patchy hazy consolidation to the left upper and mid lung similar to prior study. No focal infiltrate within the right lung. No pneumothorax. Cardiac and mediastinal structures are stable. : [id number] 06/11/2016 - - Read by: Sumanth Dejesus MD Dictated Date/time: 06/11/16 15:55 Electronically Signed by: Sumanth Dejesus MD 06/11/16 15:57 FINAL REPORT [facility] Chest tube placement insertion VR Chest tube placement insertion VR LEFT PLEURAL DRAINAGE: HISTORY: Left parapneumonic effusion. Thoracentesis was attempted by Dr. Guo but without significant fluid yield. Catheter drainage was therefore requested. CT chest done immediately before the procedure shows a multilocular posterior and basilar effusion with a loculation in the upper major fissure. PROCEDURE: The procedure was done using CT guidance, sterile technique and local anesthetic. Access into the left pleural effusion was done from a left lateral intercostal approach using a 19-gauge needle. A small amount of fluid was obtained but was not free-flowing. An Amplatz wire was then placed into the left pleural space and firmly advanced in hopes of achieving some breakup of the loculations. The tract was then dilated following which a 14-[place] loop drainage catheter with the internal retention suture removed was placed. The tube was then connected to a Pleur-evac suction apparatus. Approximately 170 mL of blood- tinged pleural fluid was then drained. Specimens of the fluid were sent for the requested studies. The catheter was then sutured to the skin. Follow-up CT showed improvement in the posterior and basilar components of the effusion with no significant change in the interlobar loculation. It was therefore decided to attempt thrombolytic therapy. 10 mg of alteplase in 50 mL of sterile saline were then injected into the left pleural space via the chest tube and the stopcock closed with a prescribed dwell time of 2 hours. The patient tolerated the procedure well without immediate complications, and was transferred back to his hospital room in stable condition. [id number] 06/11/2016 - - Read by: Max Smith MD Dictated Date/time: 06/11/16 15:54 Electronically Signed by: Max Smith MD 06/11/16 16:17 FINAL REPORT [facility] Chest wo contrast CT Chest wo contrast CT EXAM: CT chest HISTORY: Chest tightness and shortness of breath COMPARISON: Chest radiograph 06/11/2016 TECHNIQUE: Axial images of the chest with sagittal and coronal reformats. No contrast. DLP: FINDINGS: 1. Moderately large multiloculated left pleural effusion extending along the major fissure with compressive atelectasis of the adjacent lower lung. 2. Subsegmental atelectasis right lower lobe of the lung. 3 mm lung nodule superior segment right lower lobe may be a granuloma. A 12 months follow-up can be obtained. 3. Moderately large hiatal hernia. 4. Few small mediastinal lymph nodes are nonspecific. 5. Coronary artery calcifications. 6. Cholelithiasis. 7. Adenoma left adrenal gland. : [id number] 06/11/2016 - - Read by: Andres Norris MD Dictated Date/time: 06/11/16 14:57 Electronically Signed by: Andres Norris MD 06/11/16 15:13 FINAL REPORT [facility] Abdomen RUQ US Abdomen RUQ US RIGHT UPPER QUADRANT ULTRASOUND: HISTORY: Chest and abdominal pain. FINDINGS: The gallbladder is normal caliber without significant wall thickening. Gallstones are noted in the gallbladder lumen. There is no pericholecystic fluid. There is no evidence of biliary dilatation. The common duct measures 4 mm in diameter. The liver is enlarged, with a right lobe sagittal span of approximately 19 cm. There is normal echogenicity of the liver parenchyma without focal abnormalities or surface nodularity. Hepatopedal flow in the main portal vein is demonstrated. The pancreas is obscured by gas. The right kidney is unremarkable other than a 2.4 cm cyst in the upper pole. IMPRESSION: 1. Cholelithiasis without biliary dilatation. 2. Hepatomegaly without focal abnormalities. [id number] 06/11/2016 - - Read by: Max Smith MD Dictated Date/time: 06/11/16 11:27 Electronically Signed by: Max Smith MD 06/11/16 11:30 FINAL REPORT [facility] URINE AND STOOL UA Color [place] 06/11/2016 [facility] URINE AND STOOL UA Mucus Many /LPF None Seen /LPF 06/11/2016 [facility] URINE AND STOOL UA Sq Epi None Seen 06/11/2016 [facility] URINE AND STOOL UA Ketones 20 mg/dL Negative mg/dL 06/11/2016 [facility] URINE AND STOOL UA Blood Negative (06/11/16 2:18 AM) Negative 06/11/2016 [facility] URINE AND STOOL UA Bili Negative *NA* (06/11/16 2:18 AM) Negative 06/11/2016 [facility] URINE AND STOOL UA Leuk Est Negative (06/11/16 2:18 AM) Negative 06/11/2016 [facility] URINE AND STOOL UA Nitrite Negative (06/11/16 2:18 AM) Negative 06/11/2016 [facility] URINE AND STOOL UA RBC 3 /HPF 0 - 2 06/11/2016 [facility] URINE AND STOOL UA WBC 3 /HPF 0 - 5 06/11/2016 [facility] URINE AND STOOL UA Urobilinogen 4.0 mg/dL 0.1 - 1.0 06/11/2016 [facility] URINE AND STOOL UA Turbidity Clear (06/11/16 2:18 AM) Clear 06/11/2016 [facility] URINE AND STOOL UA Spec Grav 1.025 <=1.030 06/11/2016 [facility] URINE AND STOOL UA pH 5.0 5.0 - 8.0 06/11/2016 [facility] URINE AND STOOL UA Protein 100 mg/dL Negative mg/dL 06/11/2016 [facility] URINE AND STOOL UA Glucose Negative mg/dL Negative mg/dL 06/11/2016 [facility] CARDIAC ENZYMES CK MB null 0.5 - 3.6 06/11/2016 [facility] CARDIAC ENZYMES Troponin-I null 0.00 - 0.40 06/11/2016 [facility] CARDIAC ENZYMES Total CK 58 unit/L 12 - 191 06/11/2016 [facility] CARDIAC ENZYMES CK MB Index null 0.0 - 2.5 06/11/2016 [facility] CHEM PANEL Lipase Lvl 216 unit/L 73 - 393 06/11/2016 [facility] CHEM PANEL Lactic Acid Lvl 1.5 mMol/L 0.5 - 2.2 06/11/2016 [facility] ELECTROLYTES Potassium Lvl 3.7 meq/L 3.5 - 5.1 06/11/2016 [facility] ELECTROLYTES Chloride Lvl 103 meq/L 95 - 109 06/11/2016 [facility] ELECTROLYTES CO2 21 meq/L 24 - 32 06/11/2016 [facility] ELECTROLYTES Calcium Lvl 8.3 mg/dL 8.5 - 10.5 06/11/2016 [facility] ELECTROLYTES Total Protein 7.9 g/dL 6.4 - 8.4 06/11/2016 [facility] ELECTROLYTES Glucose Lvl 116 mg/dL 70 - 99 06/11/2016 [facility] ELECTROLYTES BUN 23 mg/dL 7 - 22 06/11/2016 [facility] ELECTROLYTES Sodium Lvl 134 meq/L 135 - 145 06/11/2016 [facility] ELECTROLYTES Albumin Lvl 2.4 g/dL 3.5 - 5.0 06/11/2016 [facility] ELECTROLYTES Globulin 5.5 g/dL 2.7 - 4.2 06/11/2016 [facility] ELECTROLYTES A/G Ratio 0.4 0.7 - 1.6 06/11/2016 [facility] ELECTROLYTES B/C Ratio 18 6 - 25 06/11/2016 [facility] ELECTROLYTES ALT 131 unit/L 0 - 65 06/11/2016 [facility] ELECTROLYTES AST 144 unit/L 0 - 37 06/11/2016 [facility] ELECTROLYTES Alk Phos 321 unit/L 39 - 136 06/11/2016 [facility] ELECTROLYTES Bili Total 1.2 mg/dL 0.2 - 1.3 06/11/2016 [facility] ELECTROLYTES AGAP 13.7 meq/L 10.0 - 20.0 06/11/2016 [facility] HEMATOLOGY PTT 29.0 s 22.9 - 35.8 06/11/2016 [facility] HEMATOLOGY PT 16.0 s 12.0 - 14.7 06/11/2016 [facility] HEMATOLOGY INR 1.25 0.85 - 1.17 06/11/2016 [facility] Chest 1view DX Chest 1view DX EXAM: XR CHEST 1 VIEW DATE: 06/11/2016 12:26 AM CDT INDICATION: Dyspnea COMPARISON: None Available. TECHNIQUE: A single AP view of the chest was obtained. FINDINGS: The examination is limited by low lung volumes, with bibasilar subsegmental atelectasis and crowding of the central pulmonary vasculature. There is a moderate to large left pleural effusion associated with airspace opacities within the left upper and lower lobes. There is enlargement of the cardiac silhouette, with tortuosity of the aortic contour. The visualized osseous structures are within normal limits. IMPRESSION: Moderate to large left pleural effusion with a retrocardiac and left upper lobe airspace opacity. A superimposed infection of the difficult to exclude. SL: [id number] 06/11/2016 - - Read by: Sumanth South MD Dictated Date/time: 06/11/16 00:43 Electronically Signed by: Sumanth South MD 06/11/16 00:44 FINAL REPORT [facility] Vital Signs Vital Sign Value Date Comments Source Weight 219.9 07/09/2016 [id number] Height 73 07/09/2016 [id number] Temperature Oral (F) 98.6 F 07/09/2016 [id number] Heart Rate 68 07/09/2016 [id number] Diastolic (mm Hg) 81 07/09/2016 [id number] Systolic (mm Hg) 156 07/09/2016 [id number] Systolic (mm Hg) 167 06/18/2016 [facility] Diastolic (mm Hg) 94 06/18/2016 [facility] Respitory Rate 16 06/18/2016 [facility] Heart Rate 73 06/18/2016 [facility] Temperature Oral (F) 98.1 F 06/18/2016 [facility] Respitory Rate 18 06/18/2016 [facility] Heart Rate 104 06/18/2016 [facility] Temperature Oral (F) 98.0 F 06/18/2016 [facility] Systolic (mm Hg) 158 06/18/2016 [facility] Diastolic (mm Hg) 92 06/18/2016 [facility] Respitory Rate 18 06/18/2016 [facility] Heart Rate 77 06/18/2016 [facility] Temperature Oral (F) 98.2 F 06/18/2016 [facility] Systolic (mm Hg) 174 2016 [facility] Diastolic (mm Hg) 89 2016 [facility] Weight 104.818 06/11/2016 [facility] BMI Calculated 30.49 06/11/2016 [facility] Height 185.42 cm 06/11/2016 [facility] Weight 104 06/11/2016 [facility] Encounters Location Location Details Encounter Type Encounter Number Reason For Visit Attending Provider ADM Date DC Date Status Source [facility] Inpatient [id number] Johnnie Campoverde 06/11/2016 06/18/2016 [facility] [id number] Cole Bhatiagarcia 06/29/2016 06/30/2016 [facility] Unknown [id number] 07/09/2016 07/09/2016 [id number] Procedures Procedure Code Date Perfomer Comments Source
--- OUTSIDE RECORDS SUMMARY | 2019-02-01 17:02 | XMS REPORT ---
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 Info Not Available Non Drug Allergy Encounters Encounter Location Date Unknown [facility] Jul 09, 2016 Problems Problem Type Condition ICD-9 Code Onset Dates Condition Status Assessment Sepsis A41.9 Active Problem Empyema of lung J86.9 Active Problem Sepsis due to Hemophilus influenzae A41.3 Active Problem PNA (pneumonia) J18.9 Active Assessment PNA (pneumonia) J18.9 Active Assessment Sepsis due to Hemophilus influenzae A41.3 Active Problem Sepsis A41.9 Active Assessment Empyema of lung J86.9 Active Social History Social History Element Qualifiers Date Reported Tobacco Use: . Are you a: former smoker Jul 09, 2016 Caffeine intake? . Status: Yes, What type: Coffee, Tea Jul 09, 2016 Do you drink alcohol? . Status: Yes, How Often? Rarely Jul 09, 2016 Family history Qualifier Description Comment Date Reported Maternal Grandmother Comment not available Jul 09, 2016 Paternal Grandmother Comment not available Jul 09, 2016 Siblings Comment not available Jul 09, 2016 Maternal Grandfather Comment not available Jul 09, 2016 Children Comment not available Jul 09, 2016 Father Comment not available Jul 09, 2016 Paternal Grandfather Comment not available Jul 09, 2016 Mother Comment not available Jul 09, 2016 Other: Comment not available Jul 09, 2016 Vital Signs Date/Time: Jul 09, 2016 Weight 219.9 lbs Height 73 in Temperature 98.6 F Cardiac Monitoring Heart Rate 68 /min Blood Pressure Diastolic 81 mm Hg Blood Pressure Systolic 156 mm Hg Summary Purpose [employer] Submission
--- OUTSIDE RECORDS SUMMARY | 2019-02-01 17:02 | XMS REPORT | Summary of Care ---
Author Author [facility] Organization [facility] Address Unknown Phone Unavailable Encounter HERI Ortega(MERLINE) [id number] Date(s): 06/11/16 - 06/18/16 [facility] [address] [place] [address] [phone] Discharge Disposition: Home or Self Care Attending Physician: Johnnie Campoverde MD Admitting Physician: Johnnie Campoverde MD Vital Signs 1 2 3 Most recent to oldest [Reference Range]: 185.42 cm (06/11/16 6:00 AM) Height 98.1 DegF (06/18/16 11:00 AM) 98.0 DegF (06/18/16 7:00 AM) 98.2 DegF (06/18/16 4:00 AM) Temperature Oral [96.4-99.1 DegF] 167/94 mmHg *HI* (06/18/16 11:00 AM) 158/92 mmHg *HI* (06/18/16 7:00 AM) 174/89 mmHg *HI* (06/17/16 4:43 PM) Blood Pressure [90-140/60-90 mmHg] 16 BRMIN (06/18/16 11:00 AM) 18 BRMIN (06/18/16 7:45 AM) 18 BRMIN (06/18/16 7:00 AM) Respiratory Rate [14-20 BRMIN] 73 bpm (06/18/16 11:00 AM) 104 bpm *HI* (06/18/16 7:00 AM) 77 bpm (06/18/16 4:00 AM) Peripheral Pulse Rate [60-100 bpm] 104.818 kg (06/11/16 6:00 AM) 104 kg (06/11/16 4:38 AM) 104 kg (06/11/16 4:38 AM) Weight 30.49 m2 (06/11/16 6:00 AM) Body Mass Index Problem List Condition Effective Dates Status Health Status Informant Hyperlipidemia(Confi Active rmed) Hypertension(Confirm Active ed) Hyperthyroidism(Conf Active irmed) Allergies, Adverse Reactions, Alerts Substance Reaction Severity Status NKDA Active Medications acetaminophen 650 mg, 2 tab, Route: PO, Drug form: TAB, ONCE, Dosing Weight 104.545, kg, Prior ity: STAT, Start date: 06/11/16 0:26:00 CDT, Stop date: 06/11/16 0:26:00 CDT Notes: Do not exceed 4 gm/day. (Same as: Tylenol) Start Date: 06/11/16 Stop Date: 06/11/16 Status: Completed acetaminophen 650 mg, 2 tab, Route: PO, Drug form: TAB, Q4H, Dosing Weight 104.545, kg, PRN Pa in 1-3/Temp > 100.4 F, Start date: 06/11/16 4:37:00 CDT, Duration: 30 day, Stop date: 07/11/16 4:36:00 CDT Notes: Do not exceed 4 gm/day. (Same as: Tylenol) Start Date: 06/11/16 Stop Date: 06/18/16 Status: Discontinued acetaminophen-hydrocodone 325 mg-10 mg oral tablet 1 tab, Route: PO, Drug Form: TAB, Dosing Weight 104.818, kg, Q6H, PRN Pain Score 6-10, Start date: 06/17/16 13:08:00 CDT, Duration: 30 day, Stop date: 07/17/16 13:07:00 CDT Notes: Do not exceed 4gm/day of acetaminophen. (Same as: [place] 325/10) Start Date: 06/17/16 Stop Date: 06/18/16 Status: Discontinued acetaminophen-hydrocodone 325 mg-10 mg oral tablet 1 tab, Route: PO, Drug Form: TAB, Dosing Weight 104.818, kg, Q6H, Start date: 12:00:00 CDT, Duration: 30 day, Stop date: 07/14/16 6:00:00 CDT Notes: Do not exceed 4gm/day of acetaminophen. (Same as: [place] 325/10) Start Date: 06/14/16 Stop Date: 06/14/16 Status: Discontinued acetaminophen-hydrocodone 325 mg-10 mg oral tablet 1 tab, Route: PO, Drug Form: TAB, Dosing Weight 104.818, kg, Q6Hnow, Start date: 06/15/16 1:00:00 CDT, Duration: 30 day, Stop date: 07/14/16 19:00:00 CDT Notes: Do not exceed 4gm/day of acetaminophen. (Same as: [place] 325/10) Start Date: 06/15/16 Stop Date: 06/17/16 Status: Discontinued acetaminophen-hydrocodone 325 mg-10 mg oral tablet 1 tab, Route: PO, Drug Form: TAB, Dosing Weight 104.818, kg, Q6Hnow, Start date: 06/15/16 0:06:00 CDT, Stop date: 07/15/16 0:00:00 CDT Notes: Do not exceed 4gm/day of acetaminophen. (Same as: [place] 325/10) Start Date: 06/15/16 Stop Date: 06/15/16 Status: Voided With Results Activase Route: INTRAPLEURAL, ONCE, Dosing Weight 104.818, kg, 10m mg in 50 ml sterile sa line, Start date: 06/11/16 14:33:00 CDT, Stop date: 06/11/16 14:33:00 CDT Start Date: 06/11/16 Stop Date: 06/11/16 Status: Completed albuterol 0.083% inhalation solution 2.49 mg, 3 mL, Route: NEB, Drug form: SOLN, PRN, Dosing Weight 104.818, kg, PRN Respiratory Protocol, Start date: 06/12/16 10:48:00 CDT, Duration: 30 day, Stop date: 07/12/16 10:47:00 CDT Notes: SEE RT DOCUMENTATION (Same as: Porfirio) Start Date: 06/12/16 Stop Date: 06/18/16 Status: Discontinued amLODIPine 5 mg oral tablet 5 mg=1 tab, PO, Daily, # 30 tab, 0 Refill(s) Start Date: 06/18/16 Status: Ordered atropine 0.5 mg, 5 mL, Route: IVP, Drug form: INJ, PRN, PRN Bradycardia, Start date: 05/28 02/09 11:22:00 CDT, Duration: 30 day, Stop date: 07/11/16 11:21:00 CDT Start Date: 06/11/16 Stop Date: 06/18/16 Status: Discontinued benazepril 40 mg, Route: PO, Daily, Dosing Weight 104.818, kg, Start date: 06/13/16 9:00:00 CDT, Duration: 30 day, Stop date: 07/12/16 9:00:00 CDT Start Date: 06/13/16 Stop Date: 06/12/16 Status: Deleted benazepril 40 mg, PO, Daily, 0 Refill(s) Start Date: 06/11/16 Stop Date: 07/11/16 Status: Ordered cefepime + sodium chloride 0.9% INJ 100 mL 1 gm, Route: IVPB, [id number], Dosing Weight 104.818, kg, (CrCl >/=50 ml/min), Priority: NOW, Start date: 06/13/16 18:31:00 CDT, Duration: 30 day, Stop date: 07/13/16 10:31:00 CDT Notes: (Same As: Maxipime) MEDICATION WASTE Product Size: 1000 mgProduc t Wasted: ___ mg Start Date: 06/13/16 Stop Date: 06/14/16 Status: Discontinued cefTRIAXone (ANES) Route: IV, Drug form: INJ, ONCE, Stop date: 06/14/16 9:29:00 CDT Start Date: 06/14/16 Stop Date: 06/14/16 Status: Completed cefTRIAXone + sodium chloride 0.9% INJ 100 mL 1 gm, Route: IV, [id number], Dosing Weight 104.818, kg, Start date: 06/16/16 9:00:0 0 CDT, Duration: 30 day, Stop date: 07/15/16 21:00:00 CDT Notes: (Same As: Rocephin).Use with 100 mL NS and infuse over 30 min MEDICA TION WASTE Product Size: 1000 mgProduct Wasted: ___ mg Start Date: 06/16/16 Stop Date: 06/18/16 Status: Discontinued Colace 100 mg oral capsule 100 mg, 1 cap, Route: PO, Drug form: CAP, BID, Dosing Weight 104.818, kg, Start date: 06/15/16 9:00:00 CDT, Duration: 30 day, Stop date: 07/14/16 17:00:00 CDT Notes: (Same as: Colace) (Do Not Crush) Start Date: 06/15/16 Stop Date: 06/18/16 Status: Discontinued dexamethasone (ANES) Route: IV, Drug form: INJ, ONCE, Stop date: 06/14/16 9:29:00 CDT Start Date: 06/14/16 Stop Date: 06/14/16 Status: Completed docusate sodium 100 mg oral capsule 100 mg, 1 cap, Route: PO, Drug form: CAP, BID, Dosing Weight 104.818, kg, Start date: 06/14/16 17:00:00 CDT, Duration: 30 day, Stop date: 07/14/16 9:00:00 CDT Notes: (Same as: Colace) (Do Not Crush) Start Date: 06/14/16 Stop Date: 06/14/16 Status: Discontinued Dulcolax Laxative 5 mg, 1 tab, Route: PO, Drug form: ECTAB, Q24H, Dosing Weight 104.818, kg, PRN C onstipation, Start date: 06/14/16 10:10:00 CDT, Duration: 30 day, Stop date: 10:09:00 CDT Notes: (Same As: Dulcolax, Correctol) (Do Not Crush) "Do Not Crush" Start Date: 06/14/16 Stop Date: 06/14/16 Status: Discontinued Dulcolax Laxative 5 mg, 1 tab, Route: PO, Drug form: ECTAB, Daily, Dosing Weight 104.818, kg, Star t date: 06/15/16 9:00:00 CDT, Duration: 30 day, Stop date: 07/14/16 9:00:00 CDT Notes: (Same As: Dulcolax, Correctol) (Do Not Crush) "Do Not Crush" Start Date: 06/15/16 Stop Date: 06/18/16 Status: Discontinued ePHEDrine (ANES) Route: IV, Drug form: INJ, ONCE, Stop date: 06/14/16 10:00:00 CDT Start Date: 06/14/16 Stop Date: 06/14/16 Status: Completed fentaNYL (ANES) Route: IV, Drug form: INJ, ONCE, Stop date: 06/14/16 9:17:00 CDT Start Date: 06/14/16 Stop Date: 06/14/16 Status: Completed heparin 5,000 unit, 1 mL, Route: SUB-Q, Drug form: INJ, Q12H, Dosing Weight 104.818, kg, Start date: 06/13/16 21:00:00 CDT, Duration: 30 day, Stop date: 07/13/16 9:00:00 CDT Notes: porcine heparin Start Date: 06/13/16 Stop Date: 06/18/16 Status: Discontinued hydromorphone (ANES) Route: IV, Drug form: INJ, ONCE, Stop date: 06/14/16 9:45:00 CDT Start Date: 06/14/16 Stop Date: 06/14/16 Status: Completed ibuprofen 600 mg, 1.5 tab, Route: PO, Drug form: TAB, ONCE, Dosing Weight 104.545, kg, Arabella ority: STAT, Start date: 06/11/16 0:26:00 CDT, Stop date: 06/11/16 0:26:00 CDT Notes: (Same as: Motrin)"Do Not Crush" Give with food. Start Date: 06/11/16 Stop Date: 06/11/16 Status: Completed Lactated Ringers (Bolus) IV 3,200 mL, 2000 ml/hr, Infuse Over: 1.6 hr, Route: IV, 3,200, Drug form: INJ, ONC E, Priority: STAT, Dosing Weight 104.545 kg, Start date: 06/11/16 0:26:00 CDT, D uration: 1 doses or times, Stop date: 06/11/16 0:26:00 CDT, Sepsis Dose; round U P Only Start Date: 06/11/16 Stop Date: 06/11/16 Status: Discontinued Levaquin 750 mg oral tablet 750 mg=1 tab, PO, Q24H, X 10 day, # 10 tab, 0 Refill(s) Start Date: 06/18/16 Stop Date: 06/28/16 Status: Ordered levothyroxine 75 microgram, PO, Daily, 0 Refill(s) Start Date: 06/11/16 Stop Date: 07/11/16 Status: Ordered levothyroxine 75 microgram, 1 tab, Route: PO, Drug form: TAB, Daily, Dosing Weight 104.818, kg , Start date: 06/13/16 6:30:00 CDT, Duration: 30 day, Stop date: 07/12/16 6:30:0 0 CDT Notes: Take 1 hour before or 2 hours after meal; Enteral feeds may interefere wi th the absorption of this medication. (Same as:Synthroid, Levothroid) Start Date: 06/13/16 Stop Date: 06/18/16 Status: Discontinued lidocaine (ANES) Route: IV, Drug form: INJ, ONCE, Stop date: 06/14/16 9:17:00 CDT Start Date: 06/14/16 Stop Date: 06/14/16 Status: Completed lidocaine 2% injectable solution 0.1 gm, 5 mL, Route: IV, Dosing Weight 104.818, kg, ONCE, Start date: 06/11/16 1 1:36:00 CDT, Stop date: 06/11/16 11:36:00 CDT Start Date: 06/11/16 Stop Date: 06/11/16 Status: Discontinued lidocaine 2% injectable solution 10 mL, Route: IV, Drug Form: SOLN, Dosing Weight 104.818, kg, ONCE, STAT, Start date: 06/11/16 11:38:00 CDT, Stop date: 06/11/16 11:38:00 CDT Notes: Preservative free. (Same as: Xylocaine-MPF) Start Date: 06/11/16 Stop Date: 06/11/16 Status: Completed LR 1000 mL INJ (ANES) Route: IV, Total Volume: 1,000, Start date: 06/14/16 8:59:00 CDT, Stop date: 9:59:00 CDT Start Date: 06/14/16 Stop Date: 06/14/16 Status: Completed midazolam (ANES) Route: IV, Drug form: SOLN, ONCE, Stop date: 06/14/16 9:17:00 CDT Start Date: 06/14/16 Stop Date: 06/14/16 Status: Completed morphine Sulfate 2 mg, 1 mL, Route: IVP, Drug form: INJ, Q3H, Dosing Weight 104.818, kg, PRN Pain Score 6-10, Start date: 06/14/16 10:10:00 CDT, Duration: 30 day, Stop date: 10:09:00 CDT Notes: (Same as:MORPhine Sulfate) Start Date: 06/14/16 Stop Date: 06/14/16 Status: Discontinued morphine Sulfate 2 mg, 1 mL, Route: IVP, Drug form: INJ, Q4H, Dosing Weight 104.545, kg, PRN Pain Score 7-10, Start date: 06/11/16 4:37:00 CDT, Duration: 30 day, Stop date: 06/27 02/09 4:36:00 CDT Notes: (Same as:MORPhine Sulfate) Start Date: 06/11/16 Stop Date: 06/14/16 Status: Discontinued MORPhine sulfate FLY RAIL OPERATOR 30 mg/30 ml INJ syringe 30 mg 30 mg, 30 mL, Route: IV, Initial Loading Dose: 2 mg, FLY RAIL OPERATOR Dose: 1 mg, FLY RAIL OPERATOR Lockou t: 10 minutes, Continuous Basal Rate: 0 mg, 4 Hour Limit (In MG): 30, Drug Form: INJ, Continuous, Start date: 06/15/16 0:30:00 CDT, Duration: 30 day, Stop date: 07/15/16 0... Notes: Dose: Delay: Basal rate: 4hr limit:( Same as:Stevan-Boom) Start Date: 06/15/16 Stop Date: 06/15/16 Status: Discontinued MORPhine sulfate FLY RAIL OPERATOR 30 mg/30 ml INJ syringe 30 mg 30 mg, 30 mL, Route: IV, Initial Loading Dose: 2 mg, FLY RAIL OPERATOR Dose: 1 mg, FLY RAIL OPERATOR Lockou t: 10 minutes, Continuous Basal Rate: 0 mg, 4 Hour Limit (In MG): 30, Drug Form: INJ, Continuous, Start date: 06/14/16 10:30:00 CDT, Duration: 30 day, Stop date: 07/14/16... Notes: Dose: Delay: Basal rate: 4hr limit:( Same as:Stevan-Jerocio) Start Date: 06/14/16 Stop Date: 06/14/16 Status: Discontinued naloxone 0.04 mg, 0.04 mL, Route: IVP, Drug form: INJ, Q2MIN, Dosing Weight 104.818, kg, PRN Narcotic Reversal, Start date: 06/15/16 0:14:00 CDT, Duration: 30 day, Stop date: 07/15/16 0:13:00 CDT Notes: (Same as: Narcan) MEDICATION WASTE Product Size: 2 mgProduct Was sara: ___ mg Start Date: 06/15/16 Stop Date: 06/16/16 Status: Discontinued naloxone 0.04 mg, 0.1 mL, Route: IVP, Drug form: INJ, Q2MIN, Dosing Weight 104.818, kg, P RN Narcotic Reversal, Start date: 06/14/16 10:10:00 CDT, Duration: 30 day, Stop date: 07/14/16 10:09:00 CDT Notes: Same as Narcan Start Date: 06/14/16 Stop Date: 06/14/16 Status: Discontinued nitroglycerin 0.4 mg sublingual tablet 0.4 mg, 1 tab, Route: SL, Drug form: TAB, Q5Min, PRN Chest Pain, Start date: 11:22:00 CDT, Duration: 30 day, Stop date: 07/11/16 11:21:00 CDT Notes: (Same as:Nitroquick, Nitrostat)"Do Not Crush" Sublingual tablet Start Date: 06/11/16 Stop Date: 06/18/16 Status: Discontinued Norvasc 5 mg, 1 tab, Route: PO, Drug form: TAB, Daily, Dosing Weight 104.818, kg, Priori ty: STAT, Start date: 06/16/16 21:15:00 CDT, Duration: 30 day, Stop date: 9:00:00 CDT Notes: (Same as: Norvasc) Start Date: 06/16/16 Stop Date: 06/18/16 Status: Discontinued ondansetron 4 mg, 2 mL, Route: IVP, Drug form: INJ, Q6H, Dosing Weight 104.818, kg, PRN Naus ea & Vomiting, Start date: 06/14/16 10:10:00 CDT, Duration: 30 day, Stop date: 07/14/16 10:09:00 CDT Notes: (Same as: Zofran) MEDICATION WASTE Product Size: 4 mgProduct Was sara: ___ mg Start Date: 06/14/16 Stop Date: 06/14/16 Status: Discontinued ondansetron 4 mg, 2 mL, Route: IVP, Drug form: INJ, Q6H, Dosing Weight 104.545, kg, PRN Naus ea & Vomiting, Start date: 06/11/16 4:37:00 CDT, Duration: 30 day, Stop date: 07/11/16 4:36:00 CDT Notes: (Same as: Zofran) MEDICATION WASTE Product Size: 4 mgProduct Was sara: ___ mg Start Date: 06/11/16 Stop Date: 06/18/16 Status: Discontinued ondansetron (ANES) Route: IV, Drug form: INJ, ONCE, Stop date: 06/14/16 10:06:00 CDT Start Date: 06/14/16 Stop Date: 06/14/16 Status: Completed phenylephrine (ANES) Route: IV, Drug form: INJ, ONCE, Stop date: 06/14/16 10:08:00 CDT Start Date: 06/14/16 Stop Date: 06/14/16 Status: Completed Please do not give Vanco prior to trough is collected Please do not give Vanco prior to trough is collected, Reminder, Drug form: MISC , Route: MISC, ONCE, 06/14/16 0:00:00 CDT, Stop date: 06/14/16 0:00:00 CDT Start Date: 06/14/16 Stop Date: 06/14/16 Status: Completed pneumococcal 13-valent vaccine 0.5 mL, Route: IM, Drug Form: INJ, Daily, Start date: 06/11/16 9:00:00 CDT, Dura tion: 1 doses or times, Stop date: 06/11/16 9:00:00 CDT Notes: Lightly roll vial (DO NOT SHAKE) before administration. (Same as: Prevna r 13) Start Date: 06/11/16 Stop Date: 06/11/16 Status: Completed Prinivil 40 mg, 2 tab, Route: PO, Drug form: TAB, Daily, Start date: 06/13/16 9:00:00 CDT , Duration: 30 day, Stop date: 07/12/16 9:00:00 CDT Notes: (Same as: Prinivil, Zestril) Start Date: 06/13/16 Stop Date: 06/18/16 Status: Discontinued propofol (ANES) Route: IV, Drug form: INJ, ONCE, Stop date: 06/14/16 9:17:00 CDT Start Date: 06/14/16 Stop Date: 06/14/16 Status: Completed Rocephin 1 gm, Route: IVPB, Drug form: PDR/INJ, ONCE, Dosing Weight 104.545, kg, Priority : STAT, Start date: 06/11/16 0:33:00 CDT, Stop date: 06/11/16 0:33:00 CDT Start Date: 06/11/16 Stop Date: 06/11/16 Status: Completed Rocephin + sodium chloride 0.9% INJ 100 mL 2 gm, Route: IVPB, [id number], Dosing Weight 104.818, kg, Start date: 06/14/16 13:0 0:00 CDT, Duration: 30 day, Stop date: 07/13/16 13:00:00 CDT Notes: (Same As: Rocephin).Use with 100 mL NS and infuse over 30 min MEDICA TION WASTE Product Size: 2000 mgProduct Wasted: ___ mg Start Date: 06/14/16 Stop Date: 06/15/16 Status: Discontinued Rocephin + sodium chloride 0.9% INJ 100 mL 1 gm, Route: IVPB, [id number], Dosing Weight 104.545, kg, Priority: Routine, Start date: 06/12/16 0:00:00 CDT, Duration: 30 day, Stop date: 07/11/16 0:00:00 CDT Notes: (Same As: Rocephin).Use with 100 mL NS and infuse over 30 min MEDICA TION WASTE Product Size: 1000 mgProduct Wasted: ___ mg Start Date: 06/12/16 Stop Date: 06/13/16 Status: Discontinued rocuronium (ANES) Route: IV, Drug form: INJ, ONCE, Stop date: 06/14/16 9:17:00 CDT Start Date: 06/14/16 Stop Date: 06/14/16 Status: Completed simvastatin 40 mg, PO, Bedtime, 0 Refill(s) Start Date: 06/11/16 Stop Date: 07/11/16 Status: Ordered Sodium Chloride 0.9% (Bolus) IV 3,136.35 mL, 500 ml/hr, Infuse Over: 1 Hour, Route: IV, ONCE, Priority: STAT, Do sing Weight 104.545 kg, Start date: 06/11/16 0:36:00 CDT, Duration: 1 doses or t imes, Stop date: 06/11/16 0:36:00 CDT Start Date: 06/11/16 Stop Date: 06/11/16 Status: Completed sodium chloride 0.9% 1000 ml INJ 1,000 mL 1,000 mL, Rate: 60 ml/hr, Infuse over: 16.7 hr, Route: IV, Dosing Weight 104 kg, Total Volume: 1,000, Start date: 06/11/16 5:54:00 CDT, Stop date: 07/11/16 5:53 :00 CDT Start Date: 06/11/16 Stop Date: 06/15/16 Status: Discontinued vancomycin + sodium chloride 0.9% INJ 250 mL 1,000 mg, Route: IVPB, [id number], Dosing Weight 104.818, kg, Start date: 06/12/16 13:00:00 CDT, Duration: 30 day, Stop date: 07/12/16 1:00:00 CDT Notes: TIME CRITICAL MEDICATION(Same As: Vancocin)Infusion rate< 1000 mg: infuse over 1 [id number] - 1500 mg: infuse over 1.5 [id number] - 2000 mg: infuse over 2 hours> 2001 mg: infuse over 2.5 hours MEDICATION WASTE Product Size: 1000 mgProduct Wasted: ___ mg Start Date: 06/12/16 Stop Date: 06/14/16 Status: Discontinued Zithromax 500 mg, 2 tab, Route: PO, Drug form: TAB, [id number], Dosing Weight 104, kg, Start date: 06/11/16 6:00:00 CDT, Duration: 30 day, Stop date: 07/10/16 6:00:00 CDT Notes: Take 1 hour before or 2 hours after meals.(Same As: Zithromax) Start Date: 06/11/16 Stop Date: 06/13/16 Status: Discontinued Results BLOOD BANK RESULTS 1 2 3 Most recent to oldest [Reference Range]: O POS *Unknown* (06/13/16 10:40 AM) ABO/Rh Negative (06/13/16 10:40 AM) Antibody Scrn ELECTROLYTES 1 2 3 Most recent to oldest [Reference Range]: 140 mEq/L (06/16/16 4:12 AM) 139 mEq/L (06/13/16 7:08 AM) 134 mEq/L *LOW* (06/11/16 12:28 AM) Sodium Lvl [135-145 mEq/L] 4.3 mEq/L (06/16/16 4:12 AM) 4.1 mEq/L (06/13/16 7:08 AM) 3.7 mEq/L (06/11/16 12:28 AM) Potassium Lvl [3.5-5.1 mEq/L] 106 mEq/L (06/16/16 4:12 AM) 108 mEq/L (06/13/16 7:08 AM) 103 mEq/L (06/11/16 12:28 AM) Chloride Lvl [95-109 mEq/L] 27 mEq/L (06/16/16 4:12 AM) 25 mEq/L (06/13/16 7:08 AM) 21 mEq/L *LOW* (06/11/16 12:28 AM) CO2 [24-32 mEq/L] 11.3 mEq/L (06/16/16 4:12 AM) 10.1 mEq/L (06/13/16 7:08 AM) 13.7 mEq/L (06/11/16 12:28 AM) AGAP [10.0-20.0 mEq/L] CHEM PANEL 1 2 3 Most recent to oldest [Reference Range]: 0.90 mg/dL (06/16/16 4:12 AM) 1.00 mg/dL (06/14/16 6:26 AM) 0.99 mg/dL (06/13/16 7:08 AM) Creatinine Lvl [0.50-1.40 mg/dL] 87 mL/min/1.73m2 1 *NA* (06/16/16 4:12 AM) 76 mL/min/1.73m2 2 *NA* (06/14/16 6:26 AM) 77 mL/min/1.73m2 3 *NA* (06/13/16 7:08 AM) eGFR 13 mg/dL (06/16/16 4:12 AM) 15 mg/dL (06/13/16 7:08 AM) 23 mg/dL *HI* (06/11/16 12:28 AM) BUN [7-22 mg/dL] 14 (06/16/16 4:12 AM) 18 (06/11/16 12:28 AM) B/C Ratio [6-25] 89 mg/dL (06/16/16 4:12 AM) 95 mg/dL (06/13/16 7:08 AM) 116 mg/dL *HI* (06/11/16 12:28 AM) Glucose Lvl [70-99 mg/dL] 6.0 g/dL *LOW* (06/16/16 4:12 AM) 6.8 g/dL (06/13/16 7:08 AM) 7.9 g/dL (06/11/16 12:28 AM) Total Protein [6.4-8.4 g/dL] 1.8 g/dL *LOW* (06/16/16 4:12 AM) 1.8 g/dL *LOW* (06/13/16 7:08 AM) 2.4 g/dL *LOW* (06/11/16 12:28 AM) Albumin Lvl [3.5-5.0 g/dL] 4.2 g/dL (06/16/16 4:12 AM) 5.0 g/dL *HI* (06/13/16 7:08 AM) 5.5 g/dL *HI* (06/11/16 12:28 AM) Globulin [2.7-4.2 g/dL] 0.4 *LOW* (06/16/16 4:12 AM) 0.4 *LOW* (06/13/16 7:08 AM) 0.4 *LOW* (06/11/16 12:28 AM) A/G Ratio [0.7-1.6] 7.5 mg/dL *LOW* (06/16/16 4:12 AM) 8.2 mg/dL *LOW* (06/13/16 7:08 AM) 8.3 mg/dL *LOW* (06/11/16 12:28 AM) Calcium Lvl [8.5-10.5 mg/dL] 118 unit/L *HI* (06/16/16 4:12 AM) 106 unit/L *HI* (06/13/16 7:08 AM) 131 unit/L *HI* (06/11/16 12:28 AM) ALT [0-65 unit/L] 74 unit/L *HI* (06/16/16 4:12 AM) 132 unit/L *HI* (06/13/16 7:08 AM) 144 unit/L *HI* (06/11/16 12:28 AM) AST [0-37 unit/L] 327 unit/L *HI* (06/16/16 4:12 AM) 299 unit/L *HI* (06/13/16 7:08 AM) 321 unit/L *HI* (06/11/16 12:28 AM) Alk Phos [39-136 unit/L] 0.5 mg/dL (06/16/16 4:12 AM) 0.4 mg/dL (06/13/16 7:08 AM) 1.2 mg/dL (06/11/16 12:28 AM) Bili Total [0.2-1.3 mg/dL] 0.1 mg/dL (06/13/16 7:08 AM) Bili Direct [0.0-0.3 mg/dL] 0.3 mg/dL (06/13/16 7:08 AM) Bili Indirect [0.0-1.0 mg/dL] 216 unit/L (06/11/16 12:28 AM) Lipase Lvl [73-393 unit/L] 1.5 mMol/L (06/11/16 12:28 AM) Lactic Acid Lvl [0.5-2.2 mMol/L] 1Result Comment: The eGFR is calculated using the [...] from the National Kid[employer] Education Program ( NKDEP) which additionally recommends that when the eGFR is used in patients with extremes of body mass index for purposes of drug dosing, the eGFR should be mul tiplied by the estimated BMI. 2Result Comment: The eGFR is calculated using the [...] from the National Kid[employer] Education Program ( NKDEP) which additionally recommends that when the eGFR is used in patients with extremes of body mass index for purposes of drug dosing, the eGFR should be mul tiplied by the estimated BMI. 3Result Comment: The eGFR is calculated using the [...] from the National Kid[employer] Education Program ( NKDEP) which additionally recommends that when the eGFR is used in patients with extremes of body mass index for purposes of drug dosing, the eGFR should be mul tiplied by the estimated BMI. CARDIAC ENZYMES 1 2 3 Most recent to oldest [Reference Range]: 58 unit/L (06/11/16 12:28 AM) Total CK [12-191 unit/L] <0.5 ng/mL (06/11/16 12:28 AM) CK MB [0.5-3.6 ng/mL] <0.9 (06/11/16 12:28 AM) CK MB Index [0.0-2.5] <0.02 ng/mL (06/11/16 12:28 AM) Troponin-I [0.00-0.40 ng/mL] TOXICOLOGY 1 2 3 Most recent to oldest [Reference Range]: 0100 *NA* (06/14/16 12:03 AM) Vanco Tr TND 8.6 ug/ml *NA* (06/14/16 12:03 AM) Vanco Tr URINE AND STOOL 1 2 3 Most recent to oldest [Reference Range]: Clear (06/11/16 2:18 AM) UA Turbidity [Clear] [place] *NA* (06/11/16 2:18 AM) UA Color 5.0 (06/11/16 2:18 AM) UA pH [5.0-8.0] 1.025 (06/11/16 2:18 AM) UA Spec Grav [<=1.030] Negative mg/dL *NA* (06/11/16 2:18 AM) UA Glucose [Negative mg/dL] Negative (06/11/16 2:18 AM) UA Blood [Negative] 20 mg/dL *ABN* (06/11/16 2:18 AM) UA Ketones [Negative mg/dL] 100 mg/dL *ABN* (06/11/16 2:18 AM) UA Protein [Negative mg/dL] 4.0 mg/dL *HI* (06/11/16 2:18 AM) UA Urobilinogen [0.1-1.0 mg/dL] Negative *NA* (06/11/16 2:18 AM) UA Bili [Negative] Negative (06/11/16 2:18 AM) UA Leuk Est [Negative] Negative (06/11/16 2:18 AM) UA Nitrite [Negative] 3 /HPF (06/11/16 2:18 AM) UA WBC [0-5 /HPF] 3 /HPF *HI* (06/11/16 2:18 AM) UA RBC [0-2 /HPF] None Seen *NA* (06/11/16 2:18 AM) UA Sq Epi Many /LPF *ABN* (06/11/16 2:18 AM) UA Mucus [None Seen /LPF] BODY FLUIDS 1 2 3 Most recent to oldest [Reference Range]: <1 mg/dL *NA* (06/11/16 2:45 PM) Glucose BF Pleural (06/11/16 2:45 PM) Gluc BF Type 2.0 g/dL *NA* (06/11/16 2:45 PM) Albumin BF Pleural *NA* (06/11/16 2:45 PM) Alb BF Type Pleural *NA* (06/11/16 2:45 PM) Prot BF Type Pleural (06/11/16 2:45 PM) LDH BF Type 5.3 g/dL *NA* (06/11/16 2:45 PM) Protein BF 1516 unit/L *NA* (06/11/16 2:45 PM) LDH BF [place] *ABN* (06/11/16 2:45 PM) Color BF [Colorless] Slight Cloudy (06/11/16 2:45 PM) Clarity BF [Clear] Yellow *ABN* (06/11/16 2:45 PM) Supernat BF [Colorless] 79353 /mm3 *NA* (06/11/16 2:45 PM) [place] [address] /mm3 *NA* (06/11/16 2:45 PM) WBC BF 96 % *NA* (06/11/16 2:45 PM) Segs BF 3 % *NA* (06/11/16 2:45 PM) Lymph BF 1 % *NA* (06/11/16 2:45 PM) Macrophage BF Pleural (06/11/16 2:45 PM) CellCnt BF Type IMMUNOLOGY 1 2 3 Most recent to oldest [Reference Range]: Negative *NA* (06/16/16 4:12 AM) Hep Bs Ag [Negative] Negative *NA* (06/16/16 4:12 AM) Hep B Core IgM [Negative] Negative *NA* (06/16/16 4:12 AM) Hep A IgM [Negative] Negative *NA* (06/16/16 4:12 AM) Hep C Ab HEMATOLOGY 1 2 3 Most recent to oldest [Reference Range]: 8.5 K/CMM (06/16/16 4:12 AM) 13.1 K/CMM *HI* (06/15/16 3:47 AM) 10.1 K/CMM (06/13/16 7:08 AM) WBC [3.7-10.4 K/CMM] 3.52 M/CMM *LOW* (06/16/16 4:12 AM) 3.55 M/CMM *LOW* (06/15/16 3:47 AM) 3.81 M/CMM *LOW* (06/13/16 7:08 AM) RBC [4.70-6.10 M/CMM] 10.7 g/dL *LOW* (06/16/16 4:12 AM) 10.5 g/dL *LOW* (06/15/16 3:47 AM) 11.2 g/dL *LOW* (06/13/16 7:08 AM) Hgb [14.0-18.0 g/dL] 31.2 % *LOW* (06/16/16 4:12 AM) 31.7 % *LOW* (06/15/16 3:47 AM) 33.8 % *LOW* (06/13/16 7:08 AM) Hct [42.0-54.0 %] 88.6 fL (06/16/16 4:12 AM) 89.4 fL (06/15/16 3:47 AM) 88.6 fL (06/13/16 7:08 AM) MCV [80.0-94.0 fL] 30.3 pg (06/16/16 4:12 AM) 29.6 pg (06/15/16 3:47 AM) 29.5 pg (06/13/16 7:08 AM) MCH [27.0-31.0 pg] 34.1 g/dL (06/16/16 4:12 AM) 33.1 g/dL (06/15/16 3:47 AM) 33.3 g/dL (06/13/16 7:08 AM) MCHC [32.0-36.0 g/dL] 14.7 % *HI* (06/16/16 4:12 AM) 14.6 % *HI* (06/15/16 3:47 AM) 14.6 % *HI* (06/13/16 7:08 AM) RDW [11.5-14.5 %] 307 K/CMM (06/16/16 4:12 AM) 301 K/CMM (06/15/16 3:47 AM) 314 K/CMM (06/14/16 6:26 AM) Platelet [133-450 K/CMM] 7.9 fL (06/16/16 4:12 AM) 8.0 fL (06/15/16 3:47 AM) 8.2 fL (06/13/16 7:08 AM) MPV [7.4-10.4 fL] 70.5 % (06/16/16 4:12 AM) 84.4 % *HI* (06/15/16 3:47 AM) 71.4 % (06/13/16 7:08 AM) Segs [45.0-75.0 %] 18.3 % *LOW* (06/16/16 4:12 AM) 10.3 % *LOW* (06/15/16 3:47 AM) 18.3 % *LOW* (06/13/16 7:08 AM) Lymphocytes [20.0-40.0 %] 4.4 % (06/16/16 4:12 AM) 4.5 % (06/15/16 3:47 AM) 5.9 % (06/13/16 7:08 AM) Monocytes [2.0-12.0 %] 5.8 % *HI* (06/16/16 4:12 AM) 0.6 % (06/15/16 3:47 AM) 3.7 % (06/13/16 7:08 AM) Eosinophils [0.0-4.0 %] 1.0 % (06/16/16 4:12 AM) 0.2 % (06/15/16 3:47 AM) 0.7 % (06/13/16 7:08 AM) Basophils [0.0-1.0 %] 6.0 K/CMM (06/16/16 4:12 AM) 11.1 K/CMM *HI* (06/15/16 3:47 AM) 7.2 K/CMM (06/13/16 7:08 AM) Segs-Bands # [1.5-8.1 K/CMM] 1.6 K/CMM (06/16/16 4:12 AM) 1.3 K/CMM (06/15/16 3:47 AM) 1.8 K/CMM (06/13/16 7:08 AM) Lymphocytes # [1.0-5.5 K/CMM] 0.4 K/CMM (06/16/16 4:12 AM) 0.6 K/CMM (06/15/16 3:47 AM) 0.6 K/CMM (06/13/16 7:08 AM) Monocytes # [0.0-0.8 K/CMM] 0.5 K/CMM (06/16/16 4:12 AM) 0.1 K/CMM (06/15/16 3:47 AM) 0.4 K/CMM (06/13/16 7:08 AM) Eosinophils # [0.0-0.5 K/CMM] 0.1 K/CMM (06/16/16 4:12 AM) 0.1 K/CMM (06/13/16 7:08 AM) Basophils # [0.0-0.2 K/CMM] Normal (06/16/16 4:12 AM) RBC Morph Normal (06/16/16 4:12 AM) Plt Morph 16.0 seconds *HI* (06/11/16 12:28 AM) PT [12.0-14.7 seconds] 1.25 *HI* (06/11/16 12:28 AM) INR [0.85-1.17] 29.0 seconds (06/11/16 12:28 AM) PTT [22.9-35.8 seconds] Immunizations Given and Recorded Vaccine Date Status Refusal Reason pneumococcal 13-valent vaccine 06/12/16 Given Procedures No data available for this section Social History Social History Type Response Smoking Status Never smoker; Type: Cigarettes; Exposure to Tobacco Smoke None; Cigarette Smoking Last 365 Days No; Reg Smoking Cessation Counseling No Assessment and Plan Extracted from: Title: Clinical Document Author: Dana Lopez Date: 06/18/16 Pulmonary/Critical Care Medicine progess note Dana Lopez MS AGACNP-BC SUBJECTIVE: seen and examined earlier this AM, awake and alert, tele: NSR OBJECTIVE: ROS: Denies N/V/D, CP or SOB, states that he feels great: remainder of 14 point assessment otherwise negative ASSESSMENT & EXAM: NEURO: alert and oriented, no s/s distress HEENT:normocephalic,atraumatic, PERRLA NECK: supple, no JVD or carotid bruits appreciated PULM: symmetrical expansion, CTA CV: RRR, S1,S2, no murmurs, gallops or clicks ascultated, tele: NSR ABD: Soft, nontender, (+)bowel sounds EXTREMITIES: no edema, pulses palpable INTEGUMENTARY: intact, no rashes DIAGNOSES & PROBLEMS: POD 4: L VATS decortication CA PNA cx of plural fluid: exudative BC: haem influenzae bacteremia transaminitis PLAN & TREATMENT: ABT: ID following enc IS: nebs PRN DVT prophylaxis: heparin discharge per primary and ID : pt is stable from a pulmonary standpoint: per cost of IV ABT pt electing to go home on po levaquin 750mg X14 days, will follow up with Dr Waters in 2 weeks VitalsTmp(F)[id number] 06/18 11:0098.621771/810299--- 06/18 07:45 1897 21% 06/18 07:0098.6702035/435911--- 06/18 04:0098.277-----1893--- 06/18 00:0098.177-----1894--- 24 Hr Tmax: 98.6F (37.00c) at 06/17 20:00Vital Signs are the last 5 in the past 48 hours. DateWt(kg)Wt(lb)Ht(cm)Ht(in)Method 06/11 (initial)104.82 230.60Measured 85.42 73.00Stated Lines, Tubes, and Drains: 2016 15:21 Central Lines: Basilic vein, right PICC I&ORecordInOutBal 05/2224hr Tot 880 0 880 05/2124hr Tot 200 0 200 Surgical Procedures: 06/14/16 09:03LT DECORTICATION W/ VATS [id number] Surgeon: Cole Sy MD (Service: CVT) 06/18/2016 11:00 SpO2 [id number] 06/18/2016 07:45 FIO2 (%)21 2016 20:54 Oxygen Therapy ModeRoom air Scheduled Meds (7): 06/16/16 amLODIPine (Norvasc) 5 mg PO Daily 06/15/16 bisacodyl (Dulcolax Laxative) 5 mg PO Daily 06/16/16 cefTRIAXone + sodium chloride 0.9% INJ 100 mL 1 gm IV [id number] 200 ml/hr 06/15/16 docusate (Colace 100 mg oral capsule) 100 mg PO BID 06/13/16 heparin 5,000 unit SUB-Q Q12H 06/13/16 levothyroxine 75 microgram PO Daily 06/13/16 lisinopril (Prinivil) 40 mg PO Daily Unscheduled Meds: None Continuous Infusions: None Labs (Last four charted values) WBC 8.5(JUN 16)H 13.1(JUN 15)10.1(JUN 13)10.4(JUN 11) Hgb L 10.7(MAY 20)L 10.5(MAY 19)L 11.2(MAY 17)L 12.6(MAY 15) Hct L 31.2(MAY 20)L 31.7(MAY 19)L 33.8(MAY 17)L 35.5(MAY 15) Plt 307(JUN 16)301(JUN 15)314(MAY 18)244(MAY 17) Na 140(MAY 20)139(MAY 17)L 134(MAY 15) K 4.3(MAY 20)4.1(MAY 17)3.7(MAY 15) CO2 27(JUN 16)25(MAY 17)L 21(MAY 15) Cl 106(MAY 20)108(MAY 17)103(MAY 15) Cr 0.90(MAY 20)1.00(MAY 18)0.99(MAY 17)1.26(MAY 15) BUN 13(MAY 20)15(MAY 17)H 23(MAY 15) Glucose Random 89(MAY 20)95(MAY 17)H 116(MAY 15) Ca L 7.5(MAY 20)L 8.2(MAY 17)L 8.3(MAY 15) PT H 16.0(JUN 11) INR H 1.25(MAY 15) PTT 29.0(SEP 15) Troponin <0.02(SEP 15) CK MB <0.5(SEP 15) Total CK 58(JUN 11) Addendum doing better, afebrile, on room air, repeat cultures negative so far. ok to dc on po by sugey Barboza. Larry Traore MD on 06/18/2016 21:17 Extracted from: Title: Clinical Document Author: Christine Daley MD Date: 06/14/16 [facility] INFECTIOUS DISEASE CONSULTATION NOTE Petra Wilder M.D. Syed W. Hasan, M.D. REFERRING PHYSICIAN: Dr. Catalino Bryant REASON FOR CONSULTATION: Empyema CHIEF COMPLAINT: Shortness of breath HISTORY OF PRESENT ILLNESS: Mr. Max Moeller is a 70 year old gentleman who was admitted on 06/11/16 with complaints of several days of productive cough of clear sputum and shortness of breath associated with fever up to 102. He denies any sick contacts or travel. He was found to have left lung empyema and H. flu in blood during admission. He underwent VATs this morning and is feeling better but complains of feeling warm and sore throat. REVIEW OF SYSTEMS: CONSTITUTIONAL: + fever, chills, or night sweats. EYES: Denies blurry vision or eye pain. ENT: Denies ear pain, nasal drainage, + sore throat. RESPIRATORY: Denies shortness of breath or cough. CARDIOVASCULAR: Denies chest pain or palpitations. GASTROINTESTINAL: Denied nausea, vomiting, diarrhea, or abdominal pain. GENITOURINARY: Denies dysuria, frequency, or urgency. MUSCULOSKELETAL: No joint pain, muscle aches, or swelling. NEUROLOGIC: Denies any focal weakness or headaches. SKIN: No rashes or lesions. ENDOCRINE: Denies history of polyuria, polydipsia, heat or cold intolerance. HEME/LYMPH: Denies bleeding, bruising, or swollen glands. PSYCH: No depression or anxiety PAST MEDICAL/SURGICAL HISTORY: HTN HLD Hyperthyroidism SOCIAL HISTORY: No tobacco use Rare alcohol use FAMILY HISTORY: Mother: Diabetes PHYSICAL EXAMINATION: VitalsTmp(F)[id number] 06/14 12:0697.402455/194011--- 06/14 11:3597.808167/9557694 2.0L/m 06/14 11:20----83944/532465 2.0L/m 06/14 11:05----469825/684432 3.0L/m 06/14 10:50----111890/416771 5.0L/m 24 Hr Tmax: 99.5F (37.50c) at 06/13 20:00Vital Signs are the last 5 in the past 48 hours. GEN: No acute distress, conversant HEENT: Sclera white; No thrush or erythema; Moist membranes LUNG: Clear to auscultation, decreased BS at left base; left chest tubes with serosanguinous fluid HEART: tachycardic; +S1/S2; No murmurs, rubs, or gallops ABD: +BS; Soft; Non-distended; Non-tender EXT: No clubbing, cyanosis, or edema NEURO: Alert and oriented; PERRL; No gross focal deficits SKIN: No rashes, ecchymosis, or lesions PSYCH: Appropriate affect Lines, Tubes, and Drains: 06/14/2016 10:54 Chest Tube Assessment: Other: left 1 28 [place] 06/14/2016 10:54 Chest Tube Assessment: Other: left 2 28 [place] 06/14/2016 10:54 Peripheral Lines: Hand Left Over the needle catheter 06/13/2016 13:00 Peripheral Lines: Wrist Left 22 gauge Over the needle catheter 06/11/2016 14:34 Chest Tube Assessment: Left lateral 16 [place] MEDICATIONS: Scheduled Meds (6): 06/14/16 acetaminophen-hydrocodone (acetaminophen-hydrocodone 325 mg-10 mg oral tablet) 1 tab PO Q6H 06/14/16 cefTRIAXone + sodium chloride 0.9% INJ 100 mL (Rocephin + sodium chloride 0.9% INJ 100 mL) 2 gm IVPB [id number] 200 ml/hr 06/14/16 docusate (docusate sodium 100 mg oral capsule) 100 mg PO BID 06/13/16 heparin 5,000 unit SUB-Q Q12H 06/13/16 levothyroxine 75 microgram PO Daily 06/13/16 lisinopril (Prinivil) 40 mg PO Daily ALLERGIES: Allergies (1) ActiveReaction NKDANone documented LABORATORY (Reviewed): Labs (Last four charted values) WBC 10.1(JUN 13)10.4(JUN 11) Hgb L 11.2(JUN 13)L 12.6(MAY 15) Hct L 33.8(JUN 13)L 35.5(MAY 15) Plt 314(SEP 18)244(MAY 17)197(MAY 15) Na 139(JUN 13)L 134(MAY 15) K 4.1(JUN 13)3.7(JUN 11) CO2 25(JUN 13)L 21(JUN 11) Cl 108(JUN 13)103(MAY 15) Cr 1.00(JUN 14)0.99(JUN 13)1.26(JUN 11) BUN 15(JUN 13)H 23(JUN 11) Glucose Random 95(JUN 13)H 116(JUN 11) Ca L 8.2(JUN 13)L 8.3(JUN 11) PT H 16.0(JUN 11) INR H 1.25(JUN 11) PTT 29.0(JUN 11) Troponin <0.02(JUN 11) CK MB <0.5(JUN 11) Total CK 58(JUN 11) Alk Phos: 299 High 06/13/16 08:01:50 A/G Ratio: 0.4 Low 06/13/16 08:01:50 ALT: 106 High 06/13/16 08:01:50 Albumin Lvl: 1.8 Low 06/13/16 08:01:50 Bili Direct: 0.1 06/13/16 08:01:27 Bili Indirect: 0.3 06/13/16 08:01:29 Bili Total: 0.4 06/13/16 08:01:28 Total Protein: 6.8 06/13/16 08:01:50 Globulin: 5.0 High 06/13/16 08:01:50 AST: 132 High 06/13/16 08:01:50 MICROBIOLOGY (Reviewed): Blood: Haemophilus Influenza Pleural Fluid: NGTD IMAGING (Reviewed): CT: Moderately large multiloculated left pleural effusion extending along the major fissure with compressive atelectasis of the adjacent lower lung. CXR: 1. Replacement small caliber intercostal tube on the left with larger chest tube with tip directed to the apex. 2. Development of some platelike atelectasis in the right mid lung since previous exam. 3. Slightly more shallow inspiration than on the previous exam. ASSESSMENT & PLAN: 70 yo M presents with: * Haemophilus influenza Bacteremia * H. flu Left Empyema s/p Decortication * Sepsis 2/2 Above * Elevated LFTs - Patient presents with H. flu empyema and bacteremia now s/p decortication and chest tube placement. Repeat blood cultures for clearance. Continue therapy with ceftriaxone. Continue supportive care. Will continue to follow.
--- OUTSIDE RECORDS SUMMARY | 2019-02-01 17:02 | XMS REPORT | Summary of Care ---
Author Author [facility] Organization [facility] Address Unknown Phone Unavailable Encounter HQ Britney_brennan(FIN) [id number] Date(s): 06/29/16 - 06/29/16 [facility] [address] [place] [address]- Discharge Disposition: Home or Self Care Attending Physician: Cole Sy MD Vital Signs No data available for this section Problem List Condition Effective Dates Status Health Status Informant Hyperlipidemia(Confi Active rmed) Hypertension(Confirm Active ed) Hyperthyroidism(Conf Active irmed) Allergies, Adverse Reactions, Alerts Substance Reaction Severity Status NKDA Active Medications No data available for this section Results No data available for this section Immunizations Given and Recorded Vaccine Date Status Refusal Reason pneumococcal 13-valent vaccine 06/12/16 Given Procedures No data available for this section Social History Social History Type Response Smoking Status Never smoker; Type: Cigarettes; Exposure to Tobacco Smoke None; Cigarette Smoking Last 365 Days No; Reg Smoking Cessation Counseling No Assessment and Plan No data available for this section
[2019-02-01 17:42] LABS: BASOPHILS % 0.3 % (0.0-1.0); EOSINOPHILS % 0.7 % (0.0-6.0); LYMPHOCYTES # (AUTO) 1.2 (1.0-3.2); LYMPHOCYTES % 19.9 % (18.0-39.1); MEAN CORPUSCULAR HEMOGLOBIN 19.5 pg (28-32); MEAN CORPUSCULAR VOLUME 72.3 fL (81-99); MONOCYTES # (AUTO) 0.3 (0.2-0.8); MONOCYTES % 4.3 % (4.4-11.3); NEUTROPHILS # (AUTO) 4.3 (2.1-6.9); NEUTROPHILS % 74.3 % (38.7-80.0); PLATELET COUNT 305 x10e3/uL (140-360); RED BLOOD COUNT 2.82 x10e6/uL (4.3-5.7); RED CELL DISTRIBUTION WIDTH 16.5 % (11.7-14.4)
[2019-02-01 17:44] LABS: HEMATOCRIT 20.4 % (38.2-49.6); HEMOGLOBIN 5.5 g/dL (14.0-18.0)
[2019-02-01 17:51] LABS: INR 0.99; PROTHROMBIN TIME 13.6 seconds (11.9-14.5)
[2019-02-01 17:56] LABS: PARTIAL THROMBOPLASTIN TIME 23.5 seconds (23.8-35.5)
[2019-02-01 17:59] LABS: ALANINE AMINOTRANSFERASE 19 IU/L (0-55); ALBUMIN 3.7 g/dL (3.5-5.0); ALBUMIN/GLOBULIN RATIO 0.8 (0.8-2.0); ALKALINE PHOSPHATASE 63 IU/L (40-150); ANION GAP 11.9 mmol/L (8-16); BLOOD UREA NITROGEN 26 mg/dL (7-26); BUN/CREATININE RATIO 19 (6-25); CALCIUM 9.5 mg/dL (8.4-10.2); CARBON DIOXIDE 24 mmol/L (22-29); CHLORIDE 105 mmol/L (98-107); CREATINE KINASE 63 IU/L (30-200); CREATININE, SERUM 1.39 mg/dL (0.72-1.25); EST GLOMERULAR FILTRATION RATE 50 ML/MIN (60-); GLUCOSE 99 mg/dL (74-118); POTASSIUM 3.9 mmol/L (3.5-5.1); SODIUM 137 mmol/L (136-145)
[2019-02-01] MEDS ORDERED: SODIUM CHLORIDE 0.9% 250ML 250 ML IV ONE (18:00)
[2019-02-01 18:07] LABS: BILIRUBIN,URINE NEGATIVE (NEGATIVE); CLARITY,URINE SL CLOUDY (CLEAR); COLOR,URINE YELLOW (YELLOW); KETONES,URINE NEGATIVE (NEGATIVE); LEUKOCYTE ESTERASE ,URINE NEGATIVE (NEGATIVE); NITRITE,URINE NEGATIVE (NEGATIVE); PROTEIN,URINE DIPSTICK NEGATIVE (NEGATIVE); URINE UROBILINOGEN 0.2 mg/dL (0.2 - 1)
[2019-02-01 18:16] LABS: EPITHELIAL CELLS,URINE FEW /LPF
[2019-02-01 18:17] LABS: MUCUS,URINE MODERATE (RARE)
--- NOTE | 2019-02-01 18:30 | Diagnostic Imaging Report ---
EXAMINATION: CHEST 2 VIEWS INDICATION: Shortness of breath. COMPARISON: None FINDINGS: TUBES and LINES: None. LUNGS: Mild patchy density in the left lung base suggestive of atelectasis versus scarring. There is no evidence of pneumonia or pulmonary edema. PLEURA: Increased density in the lower left hemithorax with blunting of the lateral calcific sulcus most suggestive of pleural scarring versus less likely pleural effusion.. No pneumothorax. HEART AND MEDIASTINUM: The cardiomediastinal silhouette is unremarkable. Retrocardiac density with air-fluid level suggestive of hiatal hernia. BONES AND SOFT TISSUES: No acute osseous lesion. Soft tissues are unremarkable. UPPER ABDOMEN: No free air under the diaphragm. IMPRESSION: 1. Findings in the lower left hemithorax suggestive of pleural parenchymal scarring, however, a small pleural effusion and associated left basilar atelectasis could have this appearance. 2. Small to moderate size hiatal hernia. Signed by: Dr. Rickie Dnig M.D. on 02/01/2019 6:27 PM
[2019-02-01] MEDS ORDERED: ONDANSETRON HCL INJ 2MG/ML 2ML 2 MG/ML VIAL IV PRN (19:00)
[2019-02-01] MEDS ORDERED: SODIUM CHLORIDE FLUSH 10 ML SYR INJ PRN (19:00)
--- OUTSIDE RECORDS SUMMARY | 2019-02-01 19:13 | XMS REPORT ---
Author Author [facility] Address Unknown Phone Unavailable Care Team Providers Care Fur Tailor Name Role Phone Mallory HENDERSON Unavailable Unavailable Problems This patient has no known problems. Allergies, Adverse Reactions, Alerts This patient has no known allergies or adverse reactions. Medications This patient has no known medications. Results Test Description Test Time Test Comments Text Results Atomic Results Result Comments CHEST 2 VIEWS 2019-02-01 18:20:00 [facility] [address] [address] Patient Name: MAX MOELLER MR #: [id number] : 1945 Age/Sex: 73/M Req #: [id number] Adm Physician: Ordered by: BENTLEY HENDERSON MD Report #: [id number] Location: ER Room/Bed: Procedure: [id number] DX/CHEST 2 VIEWS Exam Date: 02/01/19 Exam Time: 1750 REPORT STATUS: Signed EXAMINATION: CHEST 2 VIEWS INDICATION: Shortness of breath. COMPARISON: None FINDINGS: TUBES and LINES: None. LUNGS: Mild patchy density in the left lung base suggestive of atelectasis versus scarring. There is no evidence of pneumonia or pulmonary edema. PLEURA: Increased density in the lower left hemithorax with blunting of the lateral calcific sulcus most suggestive of pleural scarring versus less likely pleural effusion.. No pneumothorax. HEART AND MEDIASTINUM: The cardiomediastinal silhouette is unremarkable. Retrocardiac density with air- fluid level suggestive of hiatal hernia. BONES AND SOFT TISSUES: No acute osseous lesion. Soft tissues are unremarkable. UPPER ABDOMEN: No free air under the diaphragm. IMPRESSION: 1. Findings in the lower left hemithorax suggestive of pleural parenchymal scarring, however, a small pleural effusion and associated left basilar atelectasis could have this appearance. 2. Small to moderate size hiatal hernia. Signed by: Dr. Rickie Coffman M.D. on 02/01/2019 6:27 PM Dictated By: ERNESTO COFFMAN MD, MD 26 Transcribed By: NIALL on 02/01/191826 COPY TO: BENTLEY HENDERSON MD
[2019-02-01 19:28] LABS: FERRITIN 2.56 ng/mL (21.81-274.66)
[2019-02-01 20:52] VITALS: BP 151/68
[2019-02-01 21:00] VITALS: BP_SYST 147; BP_DIAS 67; BP_DIAS 74
[2019-02-01] MEDS ORDERED: IRON SUCROSE 100 MG in SODIUM CHLORIDE 0.9% 100 ML 100 ML IV SCH (21:30)
[2019-02-01 22:00] LABS: FOLATE 19.9 ng/mL (7.0-15.4)
[2019-02-01] MEDS ORDERED: BISACODYL 5 MG TAB EC PO ONE ×4 (22:00→23:30)
[2019-02-01] MEDS ORDERED: SODIUM CHLORIDE 0.9% 250ML 250 ML ONE (23:40)
[2019-02-02] VITALS: BP 144/67
[2019-02-02] MEDS ORDERED: CITRATE OF MAGNESIA 300ML BOTTLE PO ONE ×3 (01:00→05:00)
[2019-02-02] MEDS ORDERED: SODIUM CHLORIDE 0.9% 250ML 250 ML ONE ×2 (03:33→11:06)
[2019-02-02 04:00] VITALS: BP 167/74
[2019-02-02] MEDS ORDERED: CITRATE OF MAGNESIA 300ML BOTTLE PO PRN (07:00)
[2019-02-02 07:30] VITALS: BP 129/74
[2019-02-02 08:01] VITALS: BP 129/74
[2019-02-02] MEDS ORDERED: PANTOPRAZOLE 40 MG 10ML VIAL IV SCH (09:00)
[2019-02-02] MEDS ORDERED: SODIUM CHLORIDE 0.9% 250ML 250 ML IV ONE (09:45)
[2019-02-02] MEDS: IRON SUCROSE 100 MG in SODIUM CHLORIDE 0.9% 100 ML 100 ML IV SCH (10:00)
[2019-02-02] MEDS ORDERED: CYANOCOBALAMIN INJ 1,000 MCG/ML VIAL IM SCH (10:00)
[2019-02-02] MEDS ORDERED: CYANOCOBALAMIN INJ 1,000 MCG/ML VIAL IM ONE (10:45)
[2019-02-02 11:15] LABS: BASOPHILS % 0.1 % (0.0-1.0); EOSINOPHILS # (AUTO) 0.2 (0.0-0.4); EOSINOPHILS % 2.8 % (0.0-6.0); HEMATOCRIT 27.7 % (38.2-49.6); HEMOGLOBIN 8.3 g/dL (14.0-18.0); LYMPHOCYTES # (AUTO) 1.3 (1.0-3.2); LYMPHOCYTES % 19.6 % (18.0-39.1); MEAN CORPUSCULAR HEMOGLOBIN 22.3 pg (28-32); MEAN CORPUSCULAR VOLUME 74.3 fL (81-99); MONOCYTES # (AUTO) 0.3 (0.2-0.8); NEUTROPHILS # (AUTO) 4.9 (2.1-6.9); NEUTROPHILS % 73.2 % (38.7-80.0); PLATELET COUNT 285 x10e3/uL (140-360); RED BLOOD COUNT 3.73 x10e6/uL (4.3-5.7); RED CELL DISTRIBUTION WIDTH 16.7 % (11.7-14.4)
[2019-02-02 11:37] LABS: CALCIUM 9.7 mg/dL (8.4-10.2); CREATINE KINASE 91 IU/L (30-200); CREATININE, SERUM 1.25 mg/dL (0.72-1.25)
[2019-02-02] MEDS ORDERED: GLUCAGON FOR INJ 1 MG VIAL ONE (14:13)
[2019-02-02] MEDS ORDERED: LIDOCAINE HCL 2% LOCAL INJ 5 ML SDV VIAL INJ ONE (14:13)
[2019-02-02] MEDS ORDERED: PROPOFOL IV EMULSION 10 MG/ML 50 ML VIAL ONE (14:13)
[2019-02-02] MEDS ORDERED: MIDAZOLAM HCL 2 MG/2 ML VIAL ONE (18:39)
[2019-02-02] MEDS ORDERED: FENTANYL CITRATE/PF 100MCG/2 ML INJ ONE (18:39)
[2019-02-02 19:45] VITALS: BP 135/70
[2019-02-02 20:00] VITALS: BP 135/70
[2019-02-02 21:19] LABS: CREATINE KINASE 98 IU/L (30-200)
[2019-02-03] VITALS (7 sets, daily range): BP systolic 130–154; BP diastolic 71–75
[2019-02-03 06:01] LABS: BASOPHILS % 0.3 % (0.0-1.0); EOSINOPHILS # (AUTO) 0.2 (0.0-0.4); EOSINOPHILS % 3.9 % (0.0-6.0); HEMATOCRIT 25.2 % (38.2-49.6); HEMOGLOBIN 7.5 g/dL (14.0-18.0); LYMPHOCYTES # (AUTO) 1.6 (1.0-3.2); LYMPHOCYTES % 26.9 % (18.0-39.1); MEAN CORPUSCULAR HEMOGLOBIN 22.3 pg (28-32); MEAN CORPUSCULAR HGB CONC 29.8 g/dL (31-35); MEAN CORPUSCULAR VOLUME 74.8 fL (81-99); MONOCYTES # (AUTO) 0.4 (0.2-0.8); MONOCYTES % 6.6 % (4.4-11.3); NEUTROPHILS # (AUTO) 3.8 (2.1-6.9); PLATELET COUNT 241 x10e3/uL (140-360); RED BLOOD COUNT 3.37 x10e6/uL (4.3-5.7); RED CELL DISTRIBUTION WIDTH 17.3 % (11.7-14.4)
[2019-02-03] MEDS: IRON SUCROSE 100 MG in SODIUM CHLORIDE 0.9% 100 ML 100 ML IV SCH (08:46)
[2019-02-03] MEDS: FAMOTIDINE 20 MG/2 ML VIAL IV SCH (08:46)
[2019-02-03] MEDS: CYANOCOBALAMIN INJ 1,000 MCG/ML VIAL IM SCH (08:46)
[2019-02-03 09:13] LABS: CREATINE KINASE MB 0.9 ng/mL (0-5.0)
--- NOTE | 2019-02-03 10:28 | Consultation ---
DATE OF CONSULTATION: Cardiology Consultation REASON FOR CONSULTATION: Shortness of breath. HISTORY OF PRESENT ILLNESS: This is a 73-year-old man, who was recently seen in our clinic for symptoms of shortness of breath and chest pain. He had an abnormal stress test and was scheduled for heart catheterization. During preoperative assessment, he was found to have a hemoglobin of 5.5 and was sent to our facility for continuation of care. He reports shortness of breath, dyspnea, and fatigue. He denies any external bleeding. He denies any chest pressure or typical angina. He is currently scheduled for colonoscopy. He is comfortable and denies any other ongoing cardiovascular symptoms. REVIEW OF SYSTEMS: A 12-point review of system was conducted and is negative, otherwise as stated above in the HPI. PAST MEDICAL HISTORY: Hypertension, hyperlipidemia, and hypothyroidism. PAST SURGICAL HISTORY: None recent. PAST FAMILY HISTORY: No premature coronary artery disease or sudden cardiac . SOCIAL HISTORY: No illicit drug, alcohol, or tobacco use. ALLERGIES: NO KNOWN DRUG ALLERGIES. MEDICATIONS: See medications reconciliation form. PHYSICAL EXAMINATION: VITAL SIGNS: He is afebrile, heart rate is 79, respirations are 20, blood pressure is 129/74, and oxygen saturation 97% on room air. GENERAL: Well appearing, well built, no apparent distress. Alert and oriented x3. HEAD: Normocephalic and atraumatic. EYES: The extraocular muscles are intact. Conjunctivae clear. NECK: No JVD. No bruits. CARDIOVASCULAR: Regular rate and rhythm. LUNGS: Clear to auscultation bilaterally. No wheezing or rales. ABDOMEN: Soft, nontender, and nondistended. Normoactive bowel sounds. EXTREMITIES: No clubbing, cyanosis, or edema. VASCULAR: 2+ pulses. SKIN: Warm, dry, and intact. NEUROLOGIC: No focal deficits noted. Cranial nerves grossly intact. PSYCHIATRIC: Normal mood and affect. LABORATORY DATA: Reviewed. Initial hemoglobin 5.5. Current hemoglobin is 8.3. Sodium 132, potassium 4, and creatinine 1.25. A 12-lead electrocardiogram showed normal sinus rhythm. IMPRESSION: 1. Acute anemia. 2. Abnormal stress test. 3. Dyspnea. 4. Hypertension. 5. Hyperlipidemia. RECOMMENDATIONS: Continue ongoing anemia evaluation per primary team and Gastroenterology. The patient is scheduled for colonoscopy. Monitor hemoglobin closely. We will hold off on any cardiac procedures at this point in time to avoid the need for anticoagulation, given his acute anemia. Resume home cardiovascular medications and continue to monitor closely on telemetry. DO AROLDO Interiano/OSMANY /[id number]
[2019-02-03] MEDS ORDERED: ONDANSETRON HCL 4 MG ORAL DISINTEGRATING TAB SL PRN (12:00)
--- NOTE | 2019-02-03 14:43 | Consultation ---
DATE OF CONSULTATION: 02/02/2019 HISTORY OF PRESENT ILLNESS: Mr. Quiles is a 73-year-old white male, who has been referred to me for evaluation of anemia. No history of hematochezia, melena, hematuria, hematemesis, or hemoptysis. The patient has presented with extreme weakness, subsequently referred to me for further evaluation and treatment. As per the history, the weakness has started approximately a year back. SOCIAL HISTORY: Noncontributory. FAMILY HISTORY: Noncontributory. ALLERGIES: NONE. MEDICATIONS: At this time: 1. Iron sucrose IV. 2. Ondansetron. 3. Protonix. 4. Magnesium citrate. REVIEW OF SYSTEMS: HEENT: Normal. CARDIAC: Normal. RESPIRATORY: History of bronchial pneumonia in the past. The patient claimed that he had a chest tube approximately two years back for pleural effusion, which he claims was reported parapneumonic. MUSCULOSKELETAL: Normal. SKIN AND BREASTS: Normal. NEUROENDOCRINE: Normal. PHYSICAL EXAMINATION: GENERAL: A moderately-built male, very anemic, no palpable adenopathy. HEART: Within normal limits. LUNGS: Show a few rales at the left base. ABDOMEN: Soft. RECTAL: Deferred. CENTRAL NERVOUS SYSTEM: Essentially normal. EXTREMITIES: Essentially normal. LABORATORY DATA: Shows the patient with hemoglobin of 5.5, hematocrit of 20.4, MCV low at 72.3, MCHC low at 27, RDW high at 16.5, white count 5770, platelets of 305,000, 74% segments, 19% lymphocytes, and 4% monocytes. Chemistry shows sodium of 137, potassium 3.9, chloride 105, CO2 of 24, BUN 26, creatinine 1.39, glucose 99, and calcium 9.5. Iron low at 6, iron binding capacity high at 493, iron saturation is low at 1. Ferritin level is low at 2.56. Bilirubin 0.8, SGOT 18, SGPT 99, alkaline phosphatase 63, total protein slightly high at 8.4, albumin 2.7, globulin is high at 4.7. B12 level low at 156. Folic acid level high at 19.9. IMAGING DATA: Consists only of a chest x-ray, which shows findings of the left hemothorax suggestive of pleural parenchymal scarring. However, a small pleural effusion associated with left basilar atelectasis also could have the same appearance, small sliding hiatus hernia. IMPRESSION: 1. Iron-deficiency anemia. 2. B12 deficiency anemia. 3. Hyperproteinemia. 4. Hyperglobulinemia. 5. Hiatus hernia. 6. Left hemothorax scarring. 7. Subacute combined degeneration by history. PLAN, COMMENTS, AND SUGGESTIONS: 1. Suggest blood. 2. Suggest INFeD. 3. Suggest B12. 4. Suggest CAT scan of the abdomen and pelvis as part of workup. 5. Suggest EGD and colonoscopy. 6. Suggest IgG, IgA, IgM. I will calculate out the amount of Infed he will require and Infed can be given in my office, however, B12 needs to be given intramuscular since there is peripheral neuropathy. Hopefully, this has not established itself, subacute combined degeneration is very hard to treat. I certainly hope that he will recover. Thank you very much for allowing me to participate in management of this patient. MD FARTUN Brown/MODL /[id number] cc: DO Ibrahima Hopkins MD Angela B Shiue, MD Maurice S Haddad, MD
[2019-02-03] MEDS ORDERED: SODIUM CHLORIDE 0.9% 250ML 250 ML IV ONE (15:00)
[2019-02-03] MEDS ORDERED: FUROSEMIDE INJ 10 MG/ML 2 ML VIAL IV PRN (15:00)
[2019-02-03] MEDS ORDERED: CYANOCOBALAMIN INJ 1,000 MCG/ML VIAL IM ONE (15:45)
[2019-02-03] MEDS ORDERED: SODIUM CHLORIDE 0.9% 50ML 50 ML ONE (15:55)
[2019-02-03] MEDS ORDERED: IOPAMIDOL 370 MG/ML 200 ML INFUS..BTL INJ ONE (15:56)
[2019-02-03] MEDS ORDERED: SODIUM CHLORIDE 0.9% 1000ML 1,000 ML IV ONE (16:15)
--- NOTE | 2019-02-03 17:35 | Diagnostic Imaging Report ---
EXAM: CT Abdomen and Pelvis WITH contrast INDICATION: Pain. Mass in colon. Abnormal labs. COMPARISON: None. TECHNIQUE: Abdomen and pelvis were scanned utilizing a multidetector helical scanner from the lung base to the pubic symphysis after administration of IV contrast. Coronal and sagittal reformations were obtained. Routine protocol was performed. Scan was performed when during portal venous phase. IV CONTRAST: 100 cc Isovue-370. Hydration protocol was applied. ORAL CONTRAST: Water RADIATION DOSE: Total DLP: 681.08 mGy*cm Estimated effective dose: (DLP x 0.015 x size factor) mSv COMPLICATIONS: None FINDINGS: LINES and TUBES: None. LOWER THORAX: Bibasilar pleural parenchymal scarring, particularly on the left lateral lower hemithorax. Small to moderate size hiatal hernia. HEPATOBILIARY: No focal hepatic lesions. No biliary ductal dilation. GALLBLADDER: There are stones in the gallbladder. No wall thickening. SPLEEN: No splenomegaly. PANCREAS: No focal masses or ductal dilatation. ADRENALS: 1.4 cm low-attenuation nodule in the apex of the left adrenal gland on image 24 series 2. Possible small, 7 mm low-attenuation nodule in the right adrenal gland on image 22. KIDNEYS/URETERS: Kidneys enhance symmetrically. No hydronephrosis. 2.9 cm cyst exophytic of the posterolateral upper pole of the right kidney. No stones. GI TRACT: No abnormal distention, wall thickening, or evidence of bowel obstruction. Appendix is normal. PELVIC ORGANS/BLADDER: The prostate is enlarged measuring 6.0 x 4.8 cm in transverse and AP dimensions. LYMPH NODES: No lymphadenopathy. VESSELS: There is mild atherosclerotic disease in the aorta and major arterial branches. PERITONEUM / RETROPERITONEUM: No free air or fluid. BONES: 1.9 cm no aggressive lesion in the left ilium on coronal image 87. 1.0 cm sclerotic lesion in the right ilium on coronal image 79. SOFT TISSUES: Unremarkable. IMPRESSION: 1. Cholelithiasis. No biliary dilatation. 2. Small to moderate size hiatal hernia. 3. No definite colonic mass as per clinical query is examination limited due to lack of oral contrast and low sensitivity apparent the modality. Correlate with colonoscopy findings. 4. Bilateral small indeterminate adrenal nodules. Consider further evaluation with nonemergent CT adrenal mass protocol without and with contrast. 5. Enlarged prostate. Signed by: Dr. Rickie Ding M.D. on 02/03/2019 5:31 PM
[2019-02-03] MEDS ORDERED: SODIUM CHLORIDE 0.9% 250ML 250 ML ONE (22:42)
[2019-02-04 01:33] VITALS: BP 154/86
[2019-02-04 05:28] VITALS: BP 148/77
[2019-02-04 06:28] LABS: BASOPHILS % 0.3 % (0.0-1.0); EOSINOPHILS # (AUTO) 0.2 (0.0-0.4); EOSINOPHILS % 3.7 % (0.0-6.0); HEMATOCRIT 30.4 % (38.2-49.6); HEMOGLOBIN 9.5 g/dL (14.0-18.0); LYMPHOCYTES # (AUTO) 1.7 (1.0-3.2); LYMPHOCYTES % 26.3 % (18.0-39.1); MEAN CORPUSCULAR HEMOGLOBIN 23.9 pg (28-32); MEAN CORPUSCULAR HGB CONC 31.3 g/dL (31-35); MEAN CORPUSCULAR VOLUME 76.6 fL (81-99); MONOCYTES # (AUTO) 0.4 (0.2-0.8); MONOCYTES % 5.8 % (4.4-11.3); NEUTROPHILS # (AUTO) 4.1 (2.1-6.9); NEUTROPHILS % 63.4 % (38.7-80.0); PLATELET COUNT 240 x10e3/uL (140-360); RED BLOOD COUNT 3.97 x10e6/uL (4.3-5.7); RED CELL DISTRIBUTION WIDTH 18.1 % (11.7-14.4)
[2019-02-04 07:38] VITALS: BP 161/79
[2019-02-04 09:50] VITALS: BP 161/79
[2019-02-04] MEDS: IRON SUCROSE 100 MG in SODIUM CHLORIDE 0.9% 100 ML 100 ML IV SCH (09:50)
[2019-02-04] MEDS: FAMOTIDINE 20 MG/2 ML VIAL IV SCH (09:50)
[2019-02-04] MEDS: CYANOCOBALAMIN INJ 1,000 MCG/ML VIAL IM SCH (09:50)
[2019-02-04 12:04] VITALS: BP 136/76
[2019-02-04] MEDS ORDERED: AMLODIPINE BESYLATE 5 MG TAB PO SCH (13:15)
[2019-02-04] MEDS ORDERED: MULTI-VITAMIN1 EACH PO (15:33)
--- NOTE | 2019-02-04 15:33 | Progress Note ---
DATE: Cardiology Progress Note SUBJECTIVE: The patient is feeling well. Denies any chest pain, shortness of breath, increase in fatigue. OBJECTIVE: VITAL SIGNS: Temperature is 96.7, heart rate 66, respirations are 20, blood pressure is 161/79, and oxygen saturation 97% on room air. GENERAL: Well appearing, well built, in no apparent distress. CARDIOVASCULAR: Regular rate and rhythm. LUNGS: Clear to auscultation bilaterally. No wheezing. No rales. ABDOMEN: Soft, nontender, nondistended. EXTREMITIES: No edema. VASCULAR: 2+ pulses. NEUROLOGIC: No focal deficits noted. CARDIOVASCULAR MEDICATIONS: Reviewed. LABORATORY DATA: Reviewed. Hemoglobin 9.5. Telemetry monitoring revealed normal sinus rhythm with rare premature ventricular complexes. IMPRESSION: 1. Acute anemia. 2. Abnormal stress test. 3. Dyspnea. 4. Hypertension. 5. Hyperlipidemia. RECOMMENDATIONS: We will restart his antihypertensive regimen with amlodipine currently and can add benazepril if needed. Continue to monitor closely on telemetry. Continue Gastroenterology and anemia workup per consultation and primary teams. We will start Crestor for his hyperlipidemia. Raymond Rhodes DO BM/MODL /[id number]
[2019-02-04 15:45] VITALS: BP 148/78
[2019-02-04] MEDS ORDERED: CRESTOR 10MG PO SCH (21:00)
[2019-02-08 05:12] LABS: ENDOMYSIAL ANTIBODIES, IGA Negative (Negative)
== END 2019-02-04 16:12 | disposition home or self-care (01) | DRG 812 ==
LOC: ER 16:59 → ERHOLD 19:10 → IMCU 20:54 → MED/SURG 02-03 01:44 → OBSVTOIN 02-03 14:53
PROC: 30233N1 Transfusion of Nonautologous Red Blood Cells into Peripheral Vein, Percutaneous Approach (ICD-10-PCS; principal; 2019-02-01)
PROC: 0DB68ZX Excision of Stomach, Via Natural or Artificial Opening Endoscopic, Diagnostic (ICD-10-PCS; 2019-02-02)
PROC: 0DBK8ZX Excision of Ascending Colon, Via Natural or Artificial Opening Endoscopic, Diagnostic (ICD-10-PCS; 2019-02-02 16:30)
PROC: 0DBM8ZX Excision of Descending Colon, Via Natural or Artificial Opening Endoscopic, Diagnostic (ICD-10-PCS; 2019-02-02 16:30)
PROC: 0DB38ZX Excision of Lower Esophagus, Via Natural or Artificial Opening Endoscopic, Diagnostic (ICD-10-PCS; 2019-02-02 16:30)
DX: D50.9 Iron deficiency anemia, unspecified (principal); D51.3 Other dietary vitamin B12 deficiency anemia; K26.9 Duodenal ulcer, unspecified as acute or chronic, without hemorrhage or perforation; K64.8 Other hemorrhoids; K22.70 Barrett's esophagus without dysplasia; K20.8 Other esophagitis; K63.5 Polyp of colon; K29.70 Gastritis, unspecified, without bleeding; K44.9 Diaphragmatic hernia without obstruction or gangrene; I10 Essential (primary) hypertension; E03.9 Hypothyroidism, unspecified; E78.5 Hyperlipidemia, unspecified; E88.09 Other disorders of plasma-protein metabolism, not elsewhere classified; R94.39 Abnormal result of other cardiovascular function study; R77.1 Abnormality of globulin; Z79.82 Long term (current) use of aspirin; Z87.891 Personal history of nicotine dependence
CPT/HCPCS: 36415; 43235; 45378; 45384; 45385; 71046; 74177; 80048; 80053; 81001; 82270; 82550; 82553; 82607; 82728; 82746; 82747; 82784; 83516; 83540; 84152; 84466; 84484; 85025; 85610; 85730; 86256; 86850; 86900; 86920; 88305; 88312; 93005; 99284; G0378; J1610; J1756; J1940; J2001; J2250; J3420; J7030; J7050; P9016; Q9967